=== PATIENT | female | born 1965 | race Caucasian/White ===

== ENCOUNTER 2017-02-22 09:53 | Emergency (ER) | payer OTHER, SELFPAY ==
[2017-02-22 09:53] VITALS: BP 131/83; PULSE 81; RESP 16; TEMP 36.7; O2SAT 99; BMI 22.8
[2017-02-22 22:05] LABS: UTC Influenza A Antigen Negative (Negative); UTC Influenza B Antigen Negative (Negative)
== END 2017-02-22 11:45 | disposition home or self-care (01) ==
PROVIDERS: Emergency Provider Physician Assistant; Family Provider Emergency Medicine; PCP Emergency Medicine
DX: R05 Cough (principal); Z79.899 Other long term (current) drug therapy
CPT/HCPCS: 87276; 87804; 99202

== ENCOUNTER → 2017-04-02 10:11 | Outpatient (REF) | payer OTHER, SELFPAY ==
[2017-04-02 12:29] LABS: Anion Gap 14.1 mEq/L (5-15); Blood Urea Nitrogen 23 mg/dL (7-18); Carbon Dioxide 27 mmol/L (21.0-32.0); Chloride 103 mmol/L (98-107); Chol/HDL Ratio 1.9 (1-3.5); Cholesterol 154 mg/dL (140-200); Creatinine,Serum 0.81 mg/dL (0.55-1.02); Estimated Glomerular Filt Rate 74 ml/min (>60); GFR (African American) 90 ML/MIN (>60); Glucose 98 mg/dL (74-106); HDL Cholesterol 81 mg/dL (29-89); LDL Cholesterol 61 mg/dL (0-130); Potassium 4.1 mmoL/L (3.5-5.1); Sodium 140 mmol/L (136-145); Triglycerides 61 mg/dL (30-200); VLDL Cholesterol 12 mg/dL (0-40)
== END ==
LOC: LAB 10:11
PROVIDERS: Visit Provider Emergency Medicine
DX: R53.83 Other fatigue (principal)
CPT/HCPCS: 80048; 80061

== ENCOUNTER → 2017-04-10 16:31 | Outpatient (CLI) | payer OTHER, SELFPAY ==
--- NOTE | 2017-04-10 | MM_ITS ---
MM Dig screening mamm BI w/CAD CAD Screening COMPARISON: Digital mammograms 12/11/2010 and 11/22/2015 INDICATION: There is no personal or family history of breast cancer TECHNIQUE: Standard CC and MLO images were obtained. R2 CAD reviewed. FINDINGS: Mild to moderate fibroglandular densities are seen in central portions of both breasts. There are couple benign-appearing calcifications left breast. There is stable nodularity right breast. There is no suspicious lesion and there are no suspicious microcalcifications. IMPRESSION: Moderate breast density with no suspicious lesion seen BI-RADS Category: 2 Benign Finding(s) RECOMMENDED FOLLOW-UP: 1YR - 1 YEAR FOLLOW-UP (A letter has been sent to the patient regarding results of the study.)
== END ==
PROVIDERS: Family Provider Emergency Medicine; PCP Emergency Medicine; Visit Provider Emergency Medicine
DX: Z12.31 Encounter for screening mammogram for malignant neoplasm of breast (principal)
CPT/HCPCS: 77067

== ENCOUNTER → 2018-05-04 17:44 | Outpatient (CLI) | payer BC, SELFPAY ==
[2018-05-04 18:21] LABS: Basophils % 0.8 % (0.1-2.0); Eosinophils # 0.2 K/mm3 (0.0-0.4); Eosinophils % 4.1 % (0.1-12.0); Hematocrit 41.2 % (37.0-47.0); Hemoglobin 13.2 g/dL (12.2-16.2); Lymphocytes # 2.4 K/mm3 (0.7-4.5); Lymphocytes % 54.3 % (10-50); Mean Corpuscular HGB Conc 32.1 g/dL (31.8-35.4); Mean Corpuscular Hemoglobin 29.7 pg (27.0-31.2); Mean Corpuscular Volume 92.3 fl (81-99); Mean Platelet Volume 9.3 fl (7.4-10.4); Monocytes # 0.4 K/mm3 (0.1-1.0); Monocytes % 8.5 % (1.7-9.3); Neutrophils # 1.5 K/mm3 (1.8-7.8); Neutrophils % 32.4 % (37.0-80.0); Platelet Count 189 K/mm3 (142-424); Red Blood Count 4.46 M/mm3 (4.20-5.40); Red Cell Distribution Width 13.4 % (11.5-17.5); White Blood Count 4.5 K/mm3 (4.8-10.8)
[2018-05-04 18:24] LABS: MANUAL DIFFERENTIAL MANUAL DIFFERENTIAL (MANUAL DIFF)
[2018-05-04 18:37] LABS: Alanine Aminotransferase 36 U/L (12-78); Albumin Level 4.3 gm/dL (3.4-5.0); Albumin/Globulin Ratio 1.2 (1.1-1.8); Alkaline Phosphatase 119 U/L (46-116); Anion Gap 14.1 mEq/L (5-15); Aspartate Amino Transferase 34 U/L (15-37); Bilirubin,Total 1.4 mg/dL (0.2-1.0); Blood Urea Nitrogen 13 mg/dL (7-18); Calcium 9.7 mg/dL (8.5-10.1); Carbon Dioxide 28 mmol/L (21.0-32.0); Chloride 104 mmol/L (98-107); Creatinine,Serum 0.84 mg/dL (0.55-1.02); Estimated Glomerular Filt Rate 71 ml/min (>60); GFR (African American) 86 ML/MIN (>60); Globulin 3.7 gm/dl (1.3-3.2); Glucose 94 mg/dL (74-106); Potassium 4.1 mmoL/L (3.5-5.1); Sodium 142 mmol/L (136-145)
[2018-05-04 20:03] LABS: Erythrocyte Sedimentation Rate 14 mm/hr (0-30)
[2018-05-04 20:30] LABS: Eosinophils % 7 % (0-3); Lymphocytes % 55 % (10-50); Monocytes % 8 % (2-9); Neutrophils % 27 % (42-76); Platelet Estimate Normal; Total Cells Counted 100
[2018-05-04 20:31] LABS: RBC Morphology Normal
[2018-05-06 08:57] LABS: Folate 16.2 ng/mL (>3.0); Vitamin B12 643 pg/mL (232-1245)
== END ==
PROVIDERS: Visit Provider Emergency Medicine
DX: I10 Essential (primary) hypertension (principal)
CPT/HCPCS: 80053; 82607; 82746; 85007; 85025; 85651

== ENCOUNTER → 2018-07-07 13:17 | Outpatient (CLI) | payer BC, SELFPAY ==
--- NOTE | 2018-07-07 13:18 | CT_ITS ---
CT soft tissue neck w con CLINICAL INDICATION: Left anterior neck mass/nodule with difficulty swallowing ITS.REASON: Neck mass? ORDERING PHYSICIAN: Magdy Higgins MD PATIENT AGE: 53 years COMPARISON: None TECHNIQUE:Axial images obtained following the intravenous administration of 75 mL's of Optiray 350 with sagittal and coronal reformats. All CT scans at the facility use one or more dose reduction, viz: automated exposure control, ma/kV adjustment per patient size (including targeted exams where dose is matched to indication, i.e. head), or iterative reconstruction technique. A BB was placed over the area of clinical concern FINDINGS: Unremarkable nasopharynx, oropharynx, hypopharynx, and glottic and subglottic region. No thyroid mass. Scattered small cervical lymph nodes. No enlarged lymph nodes. The parotid glands and submandibular glands have an unremarkable no masses or abnormal fluid collection in this region.. The adjacent muscle/sternohyoid muscle may be slightly thickened on this side compared to the other side but no definite mass is evident. There are some mild scarring in the lung apices. IMPRESSION: 1. Essentially unremarkable CT scan of the neck with contrast. No definite mass apparent. 2. There may be some mild thickening of the sternohyoid muscle on the left at the area of the placed BB but no definite mass apparent
== END ==
PROVIDERS: PCP Emergency Medicine; Visit Provider Emergency Medicine
DX: R09.89 Other specified symptoms and signs involving the circulatory and respiratory systems (principal)
CPT/HCPCS: 70491; Q9967

== ENCOUNTER → 2018-09-27 18:13 | Outpatient (CLI) | payer BC, SELFPAY ==
[2018-09-27 18:25] LABS: Eosinophils # 0.2 K/mm3 (0.0-0.4); Eosinophils % 3.6 % (0.1-12.0); Hematocrit 39.5 % (37.0-47.0); Hemoglobin 12.6 g/dL (12.2-16.2); Lymphocytes # 2.5 K/mm3 (0.7-4.5); Lymphocytes % 56.2 % (10-50); Mean Corpuscular HGB Conc 31.9 g/dL (31.8-35.4); Mean Corpuscular Hemoglobin 28.9 pg (27.0-31.2); Mean Corpuscular Volume 90.5 fl (81-99); Mean Platelet Volume 9.5 fl (7.4-10.4); Monocytes # 0.4 K/mm3 (0.1-1.0); Monocytes % 8.2 % (1.7-9.3); Neutrophils # 1.4 K/mm3 (1.8-7.8); Platelet Count 164 K/mm3 (142-424); Red Blood Count 4.37 M/mm3 (4.20-5.40); Red Cell Distribution Width 13.5 % (11.5-17.5); White Blood Count 4.4 K/mm3 (4.8-10.8)
[2018-09-27 18:48] LABS: MANUAL DIFFERENTIAL MANUAL DIFFERENTIAL (MANUAL DIFF)
[2018-09-27 18:49] LABS: Alanine Aminotransferase 33 U/L (12-78); Albumin Level 4.3 gm/dL (3.4-5.0); Albumin/Globulin Ratio 1.3 (1.1-1.8); Alkaline Phosphatase 109 U/L (46-116); Anion Gap 10.8 mEq/L (5-15); Aspartate Amino Transferase 25 U/L (15-37); Bilirubin,Total 1.4 mg/dL (0.2-1.0); Blood Urea Nitrogen 12 mg/dL (7-18); Calcium 9.1 mg/dL (8.5-10.1); Carbon Dioxide 29 mmol/L (21.0-32.0); Chloride 106 mmol/L (98-107); Chol/HDL Ratio 1.8 (1-3.5); Cholesterol 127 mg/dL (140-200); Creatinine,Serum 1.08 mg/dL (0.55-1.02); Estimated Glomerular Filt Rate 53 ml/min (>60); Free T4 (Free Thyroxine) 0.87 ng/dl (0.76-1.46); GFR (African American) 64 ML/MIN (>60); Globulin 3.3 gm/dl (1.3-3.2); Glucose 82 mg/dL (74-106); HDL Cholesterol 72 mg/dL (29-89); LDL Cholesterol 46 mg/dL (0-130); Potassium 3.8 mmoL/L (3.5-5.1); Sodium 142 mmol/L (136-145); Thyroid Stimulating Hormone 0.93 uIU/ml (0.358-3.740); Total Protein,Serum 7.6 gm/dL (6.4-8.2); Triglycerides 47 mg/dL (30-200); VLDL Cholesterol 9 mg/dL (0-40)
[2018-09-27 18:54] LABS: Erythrocyte Sedimentation Rate 15 mm/hr (0-30)
[2018-09-27 19:05] LABS: C-Reactive Protein < 0.2 mg/dL (0.0-0.9)
[2018-09-27 19:49] LABS: Eosinophils % 3 % (0-3); Lymphocytes % 56 % (10-50); Monocytes % 8 % (2-9); Neutrophils % 31 % (42-76); Platelet Estimate Normal; RBC Morphology Normal; Total Cells Counted 100
[2018-09-29 10:04] LABS: Vitamin D 25 Hydroxy 86.2 ng/mL (30.0-100.0)
== END ==
PROVIDERS: Visit Provider Emergency Medicine
DX: I10 Essential (primary) hypertension (principal); R53.83 Other fatigue; M06.9 Rheumatoid arthritis, unspecified; E78.5 Hyperlipidemia, unspecified; I25.10 Atherosclerotic heart disease of native coronary artery without angina pectoris; Z87.891 Personal history of nicotine dependence
CPT/HCPCS: 80053; 80061; 82652; 84439; 84443; 85007; 85025; 85651; 86140

== ENCOUNTER → 2018-10-21 15:21 | Outpatient (CLI) | payer BC, SELFPAY ==
--- NOTE | 2018-10-21 15:31 | XR_ITS ---
PROCEDURE: XR ANKLE WT BEARING LT MIN 3V CLINICAL INDICATION: pain COMPARISON: No exams were available for comparison FINDINGS: No fracture, dislocation, lytic change, or blastic change evident. No significant degenerative change IMPRESSION: Negative left ankle Dictated by: Brown Montana MD 10/21/2018 16:06 Electronically signed by Brown Montana MD in [facility] 10/21/2018 16:06
--- NOTE | 2018-10-21 15:31 | XR_ITS ---
PROCEDURE: XR FOOT WT BEARING LT 3V CLINICAL INDICATION: pain COMPARISON: No exams were available for comparison FINDINGS: No fracture or dislocation. No lytic or blastic change. There is normal mineralization. The joint spaces are well-preserved. No significant degenerative/arthritic changes. No erosive changes evident. Other findings:None. IMPRESSION: Negative left foot Dictated by: Brown Montana MD 10/21/2018 16:04 Electronically signed by Brown Montana MD in [facility] 10/21/2018 16:04
--- NOTE | 2018-10-21 15:31 | XR_ITS ---
PROCEDURE: XR ANKLE WT BEARING RT MIN 3V CLINICAL INDICATION: pain COMPARISON: No exams were available for comparison FINDINGS: No fracture, dislocation, lytic change, or blastic change evident. No significant degenerative change IMPRESSION: Negative right ankle Dictated by: Brown Montana MD 10/21/2018 16:03 Electronically signed by Brown Montana MD in [facility] 10/21/2018 16:03
--- NOTE | 2018-10-21 15:31 | XR_ITS ---
PROCEDURE: XR FOOT WT BEARING RT 3V CLINICAL INDICATION: pain COMPARISON: No exams were available for comparison FINDINGS: No fracture or dislocation. No lytic or blastic change. There is normal mineralization. The joint spaces are well-preserved. No significant degenerative/arthritic changes. No erosive changes evident. Other findings:None. IMPRESSION: Negative right foot Dictated by: Brown Montana MD 10/21/2018 16:26 Electronically signed by Brown Montana MD in [facility] 10/21/2018 16:26
== END ==
PROVIDERS: PCP Emergency Medicine; Visit Provider Podiatrist
DX: M79.672 Pain in left foot (principal); M79.671 Pain in right foot
CPT/HCPCS: 73610; 73630

== ENCOUNTER → 2019-07-28 12:49 | Outpatient (CLI) | payer BC, SELFPAY ==
[2019-07-28 13:04] LABS: Chloride 108 mmol/L (98-107); Potassium 4.2 mmoL/L (3.5-5.1); Sodium 141 mmol/L (136-145)
[2019-07-28 13:07] LABS: Anion Gap 12.2 mEq/L (5-15); Blood Urea Nitrogen 16 mg/dl (7-17); Carbon Dioxide 25 mmol/L (22.0-30.0); Estimated Glomerular Filt Rate 75 ml/min (>60); GFR (African American) 90 ML/MIN (>60); Iron 95 ug/dL (37-170)
[2019-07-28 13:08] LABS: Calcium 9.5 mg/dl (8.4-10.2); Glucose 96 mg/dl (74-100)
[2019-07-28 13:23] LABS: Total Iron Binding Capacity 322 ug/dL (265-497)
== END ==
PROVIDERS: Visit Provider Physician Assistant
DX: K12.0 Recurrent oral aphthae (principal); K13.0 Diseases of lips
CPT/HCPCS: 80048; 83540; 83550

== ENCOUNTER → 2019-07-29 16:54 | Outpatient (CLI) | payer BC, SELFPAY ==
[2019-08-03 11:10] LABS: Vitamin B1 170.1 nmol/L (66.5-200.0); Zinc 101 ug/dL (56-134)
[2019-08-05 09:26] LABS: Vitamin B6 42.8 ug/L (2.0-32.8)
== END ==
PROVIDERS: Visit Provider Physician Assistant
DX: K12.0 Recurrent oral aphthae (principal); K13.0 Diseases of lips
CPT/HCPCS: 36415; 84207; 84425; 84630

== ENCOUNTER → 2019-09-13 16:18 | Outpatient (POV) | payer BC, SELFPAY | PROVIDERS: PCP Emergency Medicine; Visit Provider Dermatology | DX: Z00.00 Encounter for general adult medical examination without abnormal findings (principal) ==

== ENCOUNTER → 2019-12-29 16:49 | Outpatient (CLI) | payer BC, SELFPAY ==
[2019-12-29 17:35] LABS: Adenovirus,PCR Not Detected (NotDetected); Bordetella Pertussis Not Detected (NotDetected); Chlamydophila Pneumoniae, PCR Not Detected (NotDetected); Coronavirus 19, PCR Not Detected (NotDetected); Coronavirus 229E Not Detected (NotDetected); Coronavirus NL63 Not Detected (NotDetected); Coronavirus OC43 Not Detected (NotDetected); Coronovirus HKU1,PCR Not Detected (NotDetected); Human Metapneumovirus Not Detected (NotDetected); Influenza A, PCR Not Detected (NotDetected); Influenza AH1, 2009 Not Detected (NotDetected); Influenza AH1, PCR Not Detected (NotDetected); Influenza AH3,PCR Not Detected (NotDetected); Influenza B, PCR Not Detected (NotDetected); Mycoplasma Pneumoniae, PCR Not Detected (NotDetected); Parainfluenza 1, PCR Not Detected (NotDetected); Parainfluenza 2, PCR Not Detected (NotDetected); Parainfluenza 3, PCR Not Detected (NotDetected); Parainfluenza 4, PCR Not Detected (NotDetected); Respiratory Syncytial Virus Not Detected (NotDetected); Rhinovirus/Enterovirus Not Detected (NotDetected)
== END ==
PROVIDERS: PCP Emergency Medicine; Visit Provider Emergency Medicine
DX: Z03.818 Encounter for observation for suspected exposure to other biological agents ruled out (principal)
CPT/HCPCS: 87581; 87633; 87798; U0003

== ENCOUNTER → 2020-04-26 07:52 | Outpatient (CLI) | payer BC, SELFPAY ==
--- NOTE | 2020-04-26 07:53 | MM_ITS ---
PROCEDURE: MM DIG SCREENING MAMM BI W/CAD Digital Breast Tomosynthesis Included CLINICAL INDICATION: screening xmg There is no personal or family history of breast cancer. COMPARISON: MG [facility] DIGITAL MAMM-SCREEN BILATERAL from 12/11/2010 MG [facility] DIG MAMM-SCREEN [facility] from 11/22/2015 [facility] MM Dig screening mamm BI w/CAD from 04/10/2017 TECHNIQUE: Standard CC and MLO images and 3D Tomosynthesis was obtained. R2 CAD reviewed. FINDINGS: Scattered fibroglandular densities are seen in both breasts and the findings are bilateral and symmetrical. Couple of benign-appearing microcalcifications in each breast. There is a stable tiny benign-appearing nodular density central portion right breast there is no suspicious lesion and no suspicious microcalcifications. IMPRESSION: Moderate breast density with no suspicious lesions seen BI-RAD Category: 2 Benign Finding(s) FOLLOW-UP: 1YR 1 Year Follow-up (A letter has been sent to the patient regarding results of the study.) Dictated by: Dr. Mendoza Winter MD 05/05/2020 09:12 Dr. Mendoza Winter MD in [place] 05/05/2020 09:12
== END ==
PROVIDERS: PCP Emergency Medicine; Visit Provider Nurse Practitioner Obstetrics & Gynecology
DX: Z12.31 Encounter for screening mammogram for malignant neoplasm of breast (principal)
CPT/HCPCS: 77063; 77067

== ENCOUNTER → 2020-09-25 17:38 | Outpatient (CLI) | payer BC, SELFPAY ==
[2020-09-25 18:53] LABS: Alanine Aminotransferase 45 U/L (12-78); Albumin Level 4.6 g/dl (3.5-5.0); Albumin/Globulin Ratio 1.4 (1.1-1.8); Alkaline Phosphatase 88 U/L (38-126); Anion Gap 14.2 mEq/L (5-15); Aspartate Amino Transferase 42 U/L (14-36); Bilirubin,Total 1.2 mg/dl (0.2-1.3); Blood Urea Nitrogen 14 mg/dl (7-17); Calcium 9.3 mg/dl (8.4-10.2); Carbon Dioxide 27 mmol/L (22.0-30.0); Chloride 105 mmol/L (98-107); Estimated Glomerular Filt Rate 65 ml/min (>60); GFR (African American) 79 ML/MIN (>60); Globulin 3.4 g/dL (1.3-3.2); Glucose 100 mg/dl (74-100); Potassium 4.2 mmoL/L (3.5-5.1); Sodium 142 mmol/L (136-145)
[2020-09-25 18:58] LABS: Basophils # 0.1 K/mm3 (0-0.2); Basophils % 0.9 % (0.1-2.0); Eosinophils # 0.2 K/mm3 (0.0-0.4); Eosinophils % 3.8 % (0.1-12.0); Hematocrit 45.2 % (37.0-47.0); Hemoglobin 15.3 g/dL (12.2-16.2); Lymphocytes # 2.1 K/mm3 (0.7-4.5); Lymphocytes % 35.3 % (10-50); Mean Corpuscular HGB Conc 33.9 g/dL (31.8-35.4); Mean Corpuscular Volume 97.4 fl (81-99); Mean Platelet Volume 9.3 fl (7.4-10.4); Monocytes # 0.3 K/mm3 (0.1-1.0); Monocytes % 5.5 % (1.7-9.3); Neutrophils # 3.3 K/mm3 (1.8-7.8); Neutrophils % 54.5 % (37.0-80.0); Platelet Count 140 K/mm3 (142-424); Red Blood Count 4.64 M/mm3 (4.20-5.40); Red Cell Distribution Width 14.4 % (11.5-17.5)
== END ==
PROVIDERS: Visit Provider Emergency Medicine
DX: N39.0 Urinary tract infection, site not specified (principal)
CPT/HCPCS: 80053; 85025

== ENCOUNTER → 2020-10-10 07:49 | Outpatient (CLI) | payer BC, SELFPAY ==
--- NOTE | 2020-10-10 07:49 | CT_ITS ---
PROCEDURE: CT ABDOMEN PELVIS WO CON CLINICAL INDICATION: colic Right-sided abdominal pain COMPARISON: No exams were available for comparison TECHNIQUE: Axial images obtained with sagittal and coronal reformats. All CT scans at the facility use one or more dose reduction, viz: automated exposure control, ma/kV adjustment per patient size (including targeted exams where dose is matched to indication, i.e. head), or iterative reconstruction technique. FINDINGS: LOWER THORAX: No acute finding ABDOMEN & PELVIS: The left lobe of the liver is enlarged with a maximum transverse dimension of the liver at 23 cm. No focal liver lesion apparent. Solid organ evaluation limited without IV contrast. The spleen and adrenal glands have an unremarkable appearance. There is fullness of the pancreatic head. No peripancreatic fluid collections or inflammation apparent. This a no renal or ureteral calculi. There is non rotation of the bowel. The colon is mostly on the left side and small bowel on the right side. The the appendix is not clearly delineated. No evidence of appendicitis. No intestinal obstruction or free air. No pelvic mass or abnormal fluid collection. No evidence of diverticulitis. Small sclerotic focus is present along the posterior aspect of the left acetabulum and could be due to a bone island. IMPRESSION: 1. No acute finding. 2. Non rotation of the bowel with the colon on the left and the small bowel on the right. 3. Fullness in the head of the pancreas. Cannot exclude pancreatic mass. Suggest dedicated CT of the pancreas without and with contrast for further evaluation. 4. Enlarged left lobe of the liver Dictated by: Brown Montana MD 10/11/2020 05:18 Brown Montana MD in [place] 10/11/2020 05:18
== END ==
PROVIDERS: PCP Emergency Medicine; Visit Provider Emergency Medicine
DX: R10.84 Generalized abdominal pain (principal)
CPT/HCPCS: 74176

== ENCOUNTER → 2020-11-01 12:59 | Outpatient (CLI) | payer BC, SELFPAY ==
[2020-11-01 13:29] LABS: Chloride 104 mmol/L (98-107); Sodium 141 mmol/L (136-145)
[2020-11-01 13:30] LABS: Potassium 4.2 mmoL/L (3.5-5.1)
[2020-11-01 13:32] LABS: Blood Urea Nitrogen 10 mg/dl (7-17)
[2020-11-01 13:33] LABS: Anion Gap 14.2 mEq/L (5-15); Calcium 9.7 mg/dl (8.4-10.2); Carbon Dioxide 27 mmol/L (22.0-30.0); Estimated Glomerular Filt Rate 74 ml/min (>60); GFR (African American) 90 ML/MIN (>60); Glucose 120 mg/dl (74-100)
== END ==
PROVIDERS: Visit Provider Emergency Medicine
DX: Z01.812 Encounter for preprocedural laboratory examination (principal)
CPT/HCPCS: 36415; 80048

== ENCOUNTER → 2020-11-05 08:54 | Outpatient (CLI) | payer BC, SELFPAY ==
--- NOTE | 2020-11-05 08:54 | CT_ITS ---
PROCEDURE INFORMATION: Exam: CT Abdomen Without And With Contrast Exam date and time: 11/05/2020 8:54 AM Age: 55 years old Clinical indication: Abnormal findings; Abnormal radiologic finding of the abdomen; Patient HX: Previous CT results: 1. No acute finding. 2. Non rotation of the bowel with the colon on the left and the small bowel on the right. 3. Fullness in the head of the pancreas. Cannot exclude pancreatic mass. Suggest dedicated CT of the pancreas without and with contrast for further evaluation. 4. Enlarged left lobe of the liver; Additional info: Attn: Pancreas TECHNIQUE: Imaging protocol: Computed tomography images of the abdomen without and with intravenous contrast. Radiation optimization: All CT scans at this facility use at least one of these dose optimization techniques: automated exposure control; mA and/or kV adjustment per patient size (includes targeted exams where dose is matched to clinical indication); or iterative reconstruction. Contrast material: ISOVUE; Contrast volume: 75 ml; Contrast route: IV; COMPARISON: CT ABDOMEN PELVIS WO CON 10/10/2020 7:50 AM FINDINGS: Liver: There are scattered benign granulomatous calcifications identified within the liver. No mass. Prominent left hepatic lobe again identified. No evidence of intrahepatic biliary dilatation. Gallbladder and bile ducts: Cholecystectomy has been performed. There is no evidence of extrahepatic biliary dilatation. Pancreas: Normal. Specifically no evidence of mass within the pancreatic head. No ductal dilation. Spleen: Multiple granulomatous calcifications identified within the spleen. No evidence of mass. No splenomegaly. Adrenals: Normal. No mass. Kidneys and ureters: Normal. No hydronephrosis. Two benign cysts are again identified within the interpolar region of the left kidney. These are stable and benign. Stomach and bowel: Again, there is non rotation of the colon. This is unchanged. The stomach is unremarkable. No obstruction. No mucosal thickening. Intraperitoneal space: Unremarkable. No free air. No significant fluid collection. Lymph nodes: Unremarkable. No enlarged lymph nodes. Vasculature: Atheromatous arterial calcifications again identified. No abdominal aortic aneurysm. Bones/joints: Unremarkable. No acute fracture. No dislocation. Soft tissues: Unremarkable. IMPRESSION: 1. There is no evidence of pancreatic mass. 2. Cholecystectomy has been performed. 3. Evidence of old healed granulomatous disease within the liver and spleen. 4. Prominent left hepatic lobe again identified. 5. Two benign cysts identified within the interpolar region of the left kidney, stable. 6. Non rotation of the colon again identified.
== END ==
PROVIDERS: PCP Emergency Medicine; Visit Provider Emergency Medicine
DX: K86.89 Other specified diseases of pancreas (principal)
CPT/HCPCS: 74170; Q9967

== ENCOUNTER → 2020-11-08 09:14 | Outpatient (CLI) | payer BC, SELFPAY ==
[2020-11-08 11:36] LABS: Hemoglobin A1C 5.7 % (4.0-6.0)
== END ==
PROVIDERS: Visit Provider Nurse Practitioner Family
DX: R73.09 Other abnormal glucose (principal)
CPT/HCPCS: 36415; 83036

== ENCOUNTER → 2020-11-14 08:45 | Outpatient (CLI) | payer BC, SELFPAY ==
[2020-11-15 10:19] LABS: Chol/HDL Ratio 2.5 (1-3.5); Cholesterol 131 mg/dl (140-200); HDL Cholesterol 53 mg/dl (40-60); Triglycerides 129 mg/dl (30-150); VLDL Cholesterol 26 mg/dL (0-40)
[2020-11-15 10:31] LABS: Direct LDL Cholesterol 56.35 mg/dL (100-129)
== END ==
PROVIDERS: Visit Provider Emergency Medicine
DX: E78.5 Hyperlipidemia, unspecified (principal)
CPT/HCPCS: 80061

== ENCOUNTER → 2021-01-24 13:39 | Outpatient (CLI) | payer BC, SELFPAY ==
[2021-01-24 13:40] LABS: Adenovirus,PCR Not Detected (NotDetected); Bordetella Pertussis Not Detected (NotDetected); Chlamydophila Pneumoniae, PCR Not Detected (NotDetected); Coronavirus 229E Not Detected (NotDetected); Coronavirus NL63 Not Detected (NotDetected); Coronavirus OC43 Not Detected (NotDetected); Coronovirus HKU1,PCR Not Detected (NotDetected); Human Metapneumovirus Not Detected (NotDetected); Influenza A, PCR Not Detected (NotDetected); Influenza AH1, 2009 Not Detected (NotDetected); Influenza AH1, PCR Not Detected (NotDetected); Influenza AH3,PCR Not Detected (NotDetected); Influenza B, PCR Not Detected (NotDetected); Mycoplasma Pneumoniae, PCR Not Detected (NotDetected); Parainfluenza 1, PCR Not Detected (NotDetected); Parainfluenza 2, PCR Not Detected (NotDetected); Parainfluenza 3, PCR Not Detected (NotDetected); Parainfluenza 4, PCR Not Detected (NotDetected); Respiratory Syncytial Virus Not Detected (NotDetected); Rhinovirus/Enterovirus Not Detected (NotDetected)
[2021-01-24 17:31] LABS: Coronavirus 19, PCR Detected (NotDetected)
== END ==
PROVIDERS: Visit Provider Nurse Practitioner Family
DX: U07.1 COVID-19 (principal); R69 Illness, unspecified
CPT/HCPCS: 87581; 87632; 87798; C9803; U0003; U0005

== ENCOUNTER → 2021-01-26 10:00 | Outpatient (CLI) | payer BC, SELFPAY ==
[2021-01-26] VITALS (8 sets, daily range): BP systolic 149–186; BP diastolic 83–94; PULSE 74–104; RESP 18; TEMP 36.8; O2SAT 95–98
[2021-01-27 10:01] VITALS: BP 211/97; PULSE 96; O2SAT 96
== END ==
PROVIDERS: PCP Emergency Medicine; Visit Provider Nurse Practitioner Family
DX: U07.1 COVID-19 (principal); Z23 Encounter for immunization
CPT/HCPCS: 96365

== ENCOUNTER → 2021-05-16 10:52 | Outpatient (CLI) | payer BC, SELFPAY ==
--- NOTE | 2021-05-16 10:52 | MM_ITS ---
PROCEDURE INFORMATION: Exam: MG Bilateral Screening 3D Mammography Exam date and time: 05/16/2021 10:47 AM Age: 56 years old Clinical indication: The patient presents for breast screening exam TECHNIQUE: Imaging protocol: Bilateral Screening tomosynthesis and 2D mammography including computer-aided detection (CAD) when performed. COMPARISON: 1. MG MM DIG SCREENING MAMM BI W/CAD 04/26/2020 8:05 AM 2. [facility] MM Dig screening mamm BI w/CAD 04/10/2017 4:44 PM FINDINGS: MAMMOGRAPHY: Breast composition: The breast tissue is composed of scattered areas of fibroglandular density. Mass: None. Architectural distortion: None. Calcifications: No suspicious calcifications. Asymmetric density: None. Skin thickening: None. Axillary adenopathy: None. IMPRESSION: No mammographic evidence of malignancy. Annual screening is recommended unless otherwise clinically indicated. ASSESSMENT: BI-RADS Category 1: Negative
== END ==
PROVIDERS: PCP Emergency Medicine; Visit Provider Nurse Practitioner Obstetrics & Gynecology
DX: Z12.31 Encounter for screening mammogram for malignant neoplasm of breast (principal)
CPT/HCPCS: 77063; 77067

== ENCOUNTER 2021-10-24 16:51 | Emergency (ER) | payer BC, SELFPAY ==
[2021-10-24 17:00] VITALS: BP 188/103; PULSE 84; RESP 20; TEMP 36.7; O2SAT 98; BMI 25.2
--- NOTE | 2021-10-24 17:08 | XR_ITS ---
PROCEDURE INFORMATION: Exam: XR Right Wrist Exam date and time: 10/24/21 05:03 PM Age: 56 years old Clinical indication: Pain; Wrist; Right TECHNIQUE: Imaging protocol: Radiologic exam of the Right wrist. Views: 3 or more views. COMPARISON: No relevant prior studies available. FINDINGS: Bones/joints: Normal. Soft tissues: Normal. IMPRESSION: No acute findings.
--- NOTE | 2021-10-24 17:25 | EXP.UTC ---
Discharge Plan Disposition Patient Disposition: Home, Self-Care Condition: Good Prescriptions Prescriptions: No Action metoprolol succinate [Toprol XL] 25 mg tablet extended release 24 hr 25 mg PO BID atorvastatin [Lipitor] 80 mg tablet 80 mg PO ONCE amlodipine 2.5 mg tablet 2.5 mg PO Label Comments: TAKE 1 TABLET BY MOUTH EVERY DAY aspirin [Cody Chewable Aspirin] 81 mg tablet,chewable 81 mg PO DAILY cetirizine [Allergy Relief (cetirizine)] 10 mg tablet 10 mg PO DAILY PRN cholecalciferol (vitamin D3) 50 mcg (2,000 unit) capsule 50 mcg PO DAILY Enbrel 25 mg/0.5 mL (0.5) syringe 25 mg SQ WEEKLY phentermine [Adipex-P] 37.5 mg tablet 37.5 mg PO DAILY Qty: 30 0RF Rx Instructions: must administer 30 minutes before or 1-2 hours after breakfast Paxlovid (EUA) 150-100 mg tablet See Rx Instructions PO PER PKG DIR Qty: 30 0RF Rx Instructions: PO PER PKG DIR leflunomide 20 tablet 20 mg PO DAILY Referrals Follow up/Referrals: Magdy Higgins MD [Primary Care Provider] - See instructions Activity Restrictions/Add. Instructions Additional Instructions/Restrictions: *RICE, Rest the extremity, Ice 15-20 minutes 3-4 times daily, Compress- wear the lenin wrap as discussed as much as possible to help reduce swelling and pain, Elevate the extremity when at rest *Lenin wrap is for support and help control swelling, use it except in the shower. Be sure that is not to tight but not to loose either *Elevate when resting? *Ibuprofen 600-800mg every 6-8 hours as needed for pain an inflammation. If need something more can take Tylenol in between doses of Ibuprofen to help Immediately follow up with your family doctor for new or worsening of symptoms, or no noticeable improvement over the next 3-5 days Clinical Impressions Clinical Impression: Pain in wrist Instructions Patient Instructions: How To Perform RICE (Rest, Ice, Compress, Elevate) Discharge ED Provider: Shellie [place] [facility] [place] Stated complaint: pain in R ARM no accident Mode of Arrival: Ambulatory Source of Information: Patient Limitations: No Limitations Time Seen by Provider: 10/24/21 17:25 Description of Symptoms (Recalled from Triage Doc. by RN): PATIENT C/O PAIN TO RIGHT WRIST. SHE STATES THE PAIN STARTED ABOUT 1.5 MONTHS AGO WHEN SHE WAS HELPING HER CLEAN OUT THE FENCE ROW HEENT Symptoms (Recalled from RN notes): No Resp Symptoms (Recalled from RN notes): No Skin Symptoms (Recalled from RN notes): No MS Symptoms (Recalled from RN notes): Yes Functional Status (Recalled from RN notes): WNL History of Present Illness Provider Complaint: Patient states that about a month ago she was helping her clear out the fence row with a set of hedgers and she has been having pain in the side of her wrist below her thumb ever since State that hurts when she moves it or touches it Denies known injury Related Data Home Medications Medication Instructions Recorded Confirmed atorvastatin 80 mg tablet (Lipitor) 80 mg PO ONCE Cholesterol 04/01/17 01/24/21 metoprolol succinate 25 mg 25 mg PO BID Heart disease 04/01/17 01/24/21 tablet,extended release 24 hr (Toprol XL) leflunomide 20 mg tablet 20 mg PO DAILY Rheumatoid arthritis 11/23/18 01/24/21 amlodipine 2.5 mg tablet 2.5 mg PO 04/26/20 01/24/21 aspirin 81 mg chewable tablet 81 mg PO DAILY 04/26/20 01/24/21 (Cody Chewable Low Dose Aspirin) cetirizine 10 mg tablet (Allergy 10 mg PO DAILY PRN 04/26/20 01/24/21 Relief (cetirizine)) cholecalciferol (vitamin D3) 50 50 mcg PO DAILY 04/26/20 01/24/21 mcg (2,000 unit) capsule etanercept 25 mg/0.5 mL (0.5 mL) 25 mg SQ WEEKLY 05/23/20 01/24/21 subcutaneous syringe (Enbrel) Previous Rx's Medication Instructions Recorded phentermine 37.5 mg tablet 37.5 mg PO DAILY #30 tabs 12/12/20 (Adipex-P) nirmatrelvir 150 mg-ritonavir 100 See Rx Instructions PO PER PKG DIR
[2021-10-24 17:48] VITALS: BP 188/103; PULSE 84; RESP 20; TEMP 36.7; O2SAT 98
== END 2021-10-24 18:13 | disposition home or self-care (01) ==
PROVIDERS: Emergency Provider Nurse Practitioner; PCP Emergency Medicine
DX: M25.531 Pain in right wrist (principal)
CPT/HCPCS: 73110; 99212; G0463

== ENCOUNTER → 2022-08-07 15:28 | Outpatient (CLI) | payer BC, SELFPAY ==
--- NOTE | 2022-08-07 15:28 | MM_ITS ---
PROCEDURE INFORMATION: Exam: MG Bilateral Screening 3D Mammography Exam date and time: 08/07/2022 3:23 PM Age: 57 years old Clinical indication: Screening. No family history of breast cancer. TECHNIQUE: Imaging protocol: Bilateral Screening tomosynthesis and 2D mammography including computer-aided detection (CAD) when performed. COMPARISON: 1. MG MM DIG SCREENING MAMM BI W/CAD 05/16/2021 10:47 AM 2. MG MM DIG SCREENING MAMM BI W/CAD 04/26/2020 8:05 AM 3. [facility] MM Dig screening mamm BI w/CAD 04/10/2017 4:44 PM 4. MG [facility] DIG MAMM-SCREEN [facility] 11/22/2015 3:28 PM FINDINGS: MAMMOGRAPHY: Breast composition: There are scattered areas of fibroglandular density. Mass: No suspicious mass. Architectural distortion: None. Calcifications: No suspicious calcifications. Asymmetric density: None. Skin thickening: None. Axillary adenopathy: None. IMPRESSION: No mammographic evidence of malignancy. Annual screening is recommended unless otherwise clinically indicated. ASSESSMENT: BI-RADS Category 1: Negative
== END ==
PROVIDERS: PCP Emergency Medicine; Visit Provider Nurse Practitioner Obstetrics & Gynecology
DX: Z12.31 Encounter for screening mammogram for malignant neoplasm of breast (principal)
CPT/HCPCS: 77063; 77067

== ENCOUNTER → 2022-09-09 16:42 | Outpatient (CLI) | payer BC, SELFPAY ==
[2022-09-09 16:50] LABS: Microscopic, Urine URINE MICROSCOPIC (MICROSCOPIC)
--- NOTE | 2022-09-09 16:57 | XR_ITS ---
PROCEDURE INFORMATION: Exam: XR Chest Exam date and time: 09/09/2022 5:01 PM Age: 57 years old Clinical indication: Cough TECHNIQUE: Imaging protocol: Radiologic exam of the chest. Views: 2 views. COMPARISON: CT ABDOMEN WO/W CON 11/05/2020 10:33 AM FINDINGS: Lungs: Unremarkable. No consolidation. Pleural spaces: Unremarkable. No pleural effusion. No pneumothorax. Heart/Mediastinum: Unremarkable. No cardiomegaly. Bones/joints: Median sternotomy. IMPRESSION: No acute findings.
[2022-09-09 17:36] LABS: Appearance,Urine CLEAR (Clear); Bilirubin,Urine Negative (Negative); Blood, Urine TRACE-I (Negative); Color,Urine YELLOW (Yellow); Glucose,Urine (UA) Negative (Negative); Ketones,Urine Negative (Negative); Leukocyte Esterase,Urine Negative (Negative); Nitrate,Urine Negative (Negative); Protein,Urine Negative (Negative); Specific Gravity, Urine <= 1.005 (1.005-1.030); Urobilinogen,Urine 0.2 EU/dl (0.2)
[2022-09-09 18:00] LABS: Squamous Epithelial Cell,Urine Occasional #/hpf (0-5)
== END ==
PROVIDERS: PCP Emergency Medicine; Visit Provider Student in an Organized Health Care Education/Training Program
DX: R50.9 Fever, unspecified (principal); R05.9 Cough, unspecified
CPT/HCPCS: 71046; 81001

== ENCOUNTER 2023-01-24 14:13 | Emergency (ER) | payer BC, SELFPAY ==
--- NOTE | 2023-01-24 14:18 | XR_ITS ---
PROCEDURE INFORMATION: Exam: XR Right Forearm Exam date and time: 01/24/2023 2:18 PM Age: 58 years old Clinical indication: Injury or trauma; Fall; Blunt trauma (contusions or hematomas); Arm, lower; Right TECHNIQUE: Imaging protocol: Radiologic exam of the right forearm. Views: 2 views. COMPARISON: CR XR WRIST RT MIN 3V 01/24/2023 2:16 PM FINDINGS: Bones/joints: There is no evidence of acute fracture in any of the visualized osseous structures.. There is no evidence of malalignment or dislocation of any visualized joint. Degenerative changes in the radiocarpal joint Soft tissues: Normal. IMPRESSION: 1. There is no evidence of acute fracture in any of the visualized osseous structures.. 2. There is no evidence of malalignment or dislocation of any visualized joint.
--- NOTE | 2023-01-24 14:18 | XR_ITS ---
PROCEDURE INFORMATION: Exam: XR Right Elbow Exam date and time: 01/24/2023 2:19 PM Age: 58 years old Clinical indication: Injury or trauma; Fall; Blunt trauma (contusions or hematomas); Elbow; Right TECHNIQUE: Imaging protocol: Radiologic exam of the right elbow. Views: 3 or more views. COMPARISON: CR XR FOREARM RT 2V 01/24/2023 2:18 PM FINDINGS: Bones/joints: There is no evidence of acute fracture in any of the visualized osseous structures.. There is no evidence of malalignment or dislocation of any visualized joint. Soft tissues: Normal. IMPRESSION: 1. There is no evidence of acute fracture in any of the visualized osseous structures.. 2. There is no evidence of malalignment or dislocation of any visualized joint.
--- NOTE | 2023-01-24 14:18 | XR_ITS ---
PROCEDURE INFORMATION: Exam: XR Right Wrist Exam date and time: 01/24/2023 2:16 PM Age: 58 years old Clinical indication: Injury or trauma; Fall; Blunt trauma (contusions or hematomas); Wrist; Right TECHNIQUE: Imaging protocol: Radiologic exam of the right wrist. Views: 3 or more views. COMPARISON: CR XR WRIST RT MIN 3V 10/24/2021 5:03 PM FINDINGS: Bones/joints: There is no evidence of acute fracture in any of the visualized osseous structures.. There is no evidence of malalignment or dislocation of any visualized joint. Soft tissues: Normal. IMPRESSION: 1. There is no evidence of acute fracture in any of the visualized osseous structures.. 2. There is no evidence of malalignment or dislocation of any visualized joint.
[2023-01-24 14:45] VITALS: BP 145/69; PULSE 85; RESP 20; TEMP 36.8; O2SAT 98; BMI 27.2
--- NOTE | 2023-01-24 15:13 | EXP.UTC ---
Discharge Plan Disposition Patient Disposition: Home, Self-Care Prescriptions Prescriptions: New ibuprofen 800 mg tablet 800 mg PO TID PRN (Reason: pain) Qty: 30 0RF No Action metoprolol succinate [Toprol XL] 25 mg tablet extended release 24 hr 25 mg PO BID atorvastatin [Lipitor] 80 mg tablet 80 mg PO ONCE amlodipine 2.5 mg tablet 2.5 mg PO DAILY Patient Comments: TAKE 1 TABLET BY MOUTH EVERY DAY Enbrel 25 mg/0.5 mL (0.5) syringe 25 mg SQ WEEKLY leflunomide 20 tablet 20 mg PO DAILY valsartan 160 mg tablet 160 mg PO DAILY Patient Comments: TAKE 1 TABLET BY MOUTH 1 TIME EACH DAY. Referrals Follow up/Referrals: Salo Montes DO [Primary Care Provider] - See instructions Activity Restrictions/Add. Instructions Additional Instructions/Restrictions: If not better or if worse then follow up with PCP in a week. Clinical Impressions Clinical Impression: Right arm pain Instructions Patient Instructions: How To Perform RICE (Rest, Ice, Compress, Elevate) Discharge ED Provider: Michelle Londono [facility] HPI General Stated complaint: AO fall 01/24, right arm pain Mode of Arrival: Ambulatory Source of Information: Patient Limitations: No Limitations Time Seen by Provider: 01/24/23 15:12 Description of Symptoms (Recalled from Triage Doc. by RN): PATIENT C/O PAIN TO RIGHT ARM AFTER FALLING ON IT THIS MORNING. SHE STATES PAIN IS FROM HER ELBOW TO WRIST HEENT Symptoms (Recalled from RN notes): No Resp Symptoms (Recalled from RN notes): No Skin Symptoms (Recalled from RN notes): No MS Symptoms (Recalled from RN notes): Yes Functional Status (Recalled from RN notes): WNL History of Present Illness Provider Complaint: Pt reports falling this morning over her cat and she fell on her right arm and now has pain from her elbow to her wrist. She states that she has not been able to completely straighten out her right arm due to pain in her elbow. She has taken Ibuprofen for her pain. Related Data Home Medications Medication Instructions Recorded Confirmed atorvastatin 80 mg tablet (Lipitor) 80 mg PO ONCE Cholesterol 04/01/17 01/24/23 metoprolol succinate 25 mg 25 mg PO BID Heart disease 04/01/17 01/24/23 tablet,extended release 24 hr (Toprol XL) leflunomide 20 mg tablet 20 mg PO DAILY Rheumatoid arthritis 11/23/18 01/24/23 amlodipine 2.5 mg tablet 2.5 mg PO DAILY 04/26/20 01/24/23 etanercept 25 mg/0.5 mL (0.5 mL) 25 mg SQ WEEKLY 05/23/20 01/24/23 subcutaneous syringe (Enbrel) valsartan 160 mg tablet 160 mg PO DAILY 01/24/23 01/24/23 Previous Rx's Medication Instructions Recorded ibuprofen 800 mg tablet 800 mg PO TID PRN pain #30 tabs 01/24/23 Allergies Allergy/AdvReac Type Severity Reaction Status Date / Time topiramate [From Topamax] Allergy Unknown VISION LOSS Verified 09/09/22 16:09 Worker's Comp Is this a Worker's Comp case?: No [facility] Disclaimer: The information contained in this section may have been updated after the patient was seen, as this information can be updated by other users. Medical History (Updated 01/24/23 @ 15:29 by Michelle Londono APRN) History of heart attack Hyperlipidemia Hypertension Negative colorectal cancer screening using DNA-based stool test Surgical History H/O right heart catheterization History of cholecystectomy History of open heart surgery History of tubal ligation Social History Smoking Status: Former smoker second hand exposure: No alcohol intake: never substance use type: denies use current occupational status: unemployed Travel in the last 8 weeks: None household members: spouse housing: house caffeine: Yes ROS Obtained: Yes All systems reviewed & no additional complaints except as documented Constitutional Constitutional: Reports system reviewed and no ad
[2023-01-24 15:34] VITALS: BP 145/69; PULSE 85; RESP 20; TEMP 36.8; O2SAT 98
== END 2023-01-24 15:38 | disposition home or self-care (01) ==
PROVIDERS: Emergency Provider Nurse Practitioner Family; PCP Internal Medicine
DX: M79.631 Pain in right forearm (principal); I10 Essential (primary) hypertension; E78.5 Hyperlipidemia, unspecified; Z87.891 Personal history of nicotine dependence; W01.10XA Fall on same level from slipping, tripping and stumbling with subsequent striking against unspecified object, initial encounter
CPT/HCPCS: 73080; 73090; 73110; 99212; 99214; G0463

== ENCOUNTER 2023-04-09 18:34 | Outpatient (CLI) | payer BC, SELFPAY ==
[2023-04-09 18:15] LABS: Basophils % 0.5 % (0.1-2.0); Eosinophils # 0.3 K/mm3 (0.0-0.4); Eosinophils % 4.2 % (0.1-12.0); Hematocrit 36.8 % (37.0-47.0); Hemoglobin 13.7 g/dL (12.2-16.2); Lymphocytes # 2.8 K/mm3 (0.7-4.5); Lymphocytes % 40.6 % (10-50); Mean Corpuscular HGB Conc 37.2 g/dL (31.8-35.4); Mean Corpuscular Hemoglobin 33.5 pg (27.0-31.2); Mean Platelet Volume 10.1 fl (7.4-10.4); Monocytes # 0.7 K/mm3 (0.1-1.0); Monocytes % 9.6 % (1.7-9.3); Neutrophils # 3.1 K/mm3 (1.8-7.8); Neutrophils % 45.1 % (37.0-80.0); Platelet Count 226 K/mm3 (142-424); Red Blood Count 4.09 M/mm3 (4.20-5.40); Red Cell Distribution Width 13.7 % (11.5-17.5)
[2023-04-09 18:22] LABS: Alanine Aminotransferase 42 U/L (12-78); Albumin Level 4.8 g/dl (3.5-5.0); Albumin/Globulin Ratio 1.4 (1.1-1.8); Alkaline Phosphatase 95 U/L (38-126); Aspartate Amino Transferase 37 U/L (14-36); Bilirubin,Total 1.3 mg/dl (0.2-1.3); Blood Urea Nitrogen 15 mg/dl (7-17); Carbon Dioxide 25 mmol/L (22.0-30.0); Chloride 106 mmol/L (98-107); Estimated Glomerular Filt Rate 74 ml/min (>60); GFR (African American) 89 ML/MIN (>60); Globulin 3.4 g/dL (1.3-3.2); Glucose 107 mg/dl (74-100); Sodium 142 mmol/L (136-145); Total Protein,Serum 8.2 g/dl (6.3-8.2)
[2023-04-09 18:34] LABS: Intact Parathyroid Hormone 21.6 pg/mL (7.5-53.5)
[2023-04-09 18:41] LABS: T4 (Thyroxine) 6.9 ug/dl (5.53-11.0); Triiodothryronine (T3) Uptake 29 % (23.5-40.5)
[2023-04-09 18:42] LABS: 25-OH Vitamin D, Total 63.8 ng/mL (30-100)
[2023-04-09 18:54] LABS: Thyroid Stimulating Hormone 0.08 uIU/mL (0.465-4.68)
[2023-04-13 13:50] LABS: Calcium, Ionized 4.8 mg/dL (4.5-5.6)
== END 2023-04-09 23:59 ==
LOC: LAB.DROPOF 18:34
PROVIDERS: PCP Student in an Organized Health Care Education/Training Program; Visit Provider Student in an Organized Health Care Education/Training Program
DX: E83.52 Hypercalcemia (principal); E04.1 Nontoxic single thyroid nodule; M06.9 Rheumatoid arthritis, unspecified; I10 Essential (primary) hypertension; E78.5 Hyperlipidemia, unspecified; Z79.899 Other long term (current) drug therapy
CPT/HCPCS: 80053; 82306; 82330; 83970; 84436; 84443; 84479; 85025

== ENCOUNTER 2023-04-16 08:54 | Outpatient (CLI) | payer BC, SELFPAY ==
--- NOTE | 2023-04-16 08:54 | US_ITS ---
FINAL REPORT TECHNIQUE: Sonographic images of the thyroid gland were obtained in the longitudinal and transverse planes. CLINICAL HISTORY: thyroid nodule COMPARISON: None FINDINGS: The right lobe measures 1.5 x 5.0 x 1.4 cm. There is a colloid cyst in the lower pole. There are no solid nodules. The left lobe measures 1.4 x 4.3 x 1.2 cm. The left lobe is homogeneous. There are no cystic or solid nodules. The isthmus measures 2 mm. This is normal. IMPRESSION: Small colloid cyst on the right. Otherwise, unremarkable exam. Reviewed, Interpreted and Dictated by Anayeli Pate MD Transcribed by Haley Dumont Authenticated and [facility]
[2023-04-16 09:57] LABS: Basophils # 0.1 K/mm3 (0-0.2); Basophils % 1.4 % (0.1-2.0); Eosinophils # 0.3 K/mm3 (0.0-0.4); Eosinophils % 6.9 % (0.1-12.0); Hematocrit 40.4 % (37.0-47.0); Hemoglobin 13.2 g/dL (12.2-16.2); Lymphocytes # 2.2 K/mm3 (0.7-4.5); Lymphocytes % 43.9 % (10-50); Mean Corpuscular HGB Conc 32.6 g/dL (31.8-35.4); Mean Corpuscular Hemoglobin 30.2 pg (27.0-31.2); Mean Corpuscular Volume 92.7 fl (81-99); Mean Platelet Volume 8.9 fl (7.4-10.4); Monocytes # 0.4 K/mm3 (0.1-1.0); Monocytes % 7.4 % (1.7-9.3); Neutrophils % 40.3 % (37.0-80.0); Platelet Count 229 K/mm3 (142-424); Red Blood Count 4.36 M/mm3 (4.20-5.40); Red Cell Distribution Width 13.8 % (11.5-17.5)
[2023-04-16 10:28] LABS: Iron 86 ug/dL (37-170)
[2023-04-16 10:38] LABS: Total Iron Binding Capacity 337 ug/dL (265-497)
[2023-04-16 11:06] LABS: Ferritin 41.9 ng/ml (11.1-264)
[2023-04-16 11:42] LABS: Folate > 20.00 ng/mL; Vitamin B12 > 1000 pg/mL (239-931)
[2023-04-17 08:19] LABS: Thyroid Peroxidase Antibodies 21 IU/mL (0-34)
[2023-04-18 08:20] LABS: Thyroid Stimulating Immunoglob <0.10 IU/L (0.00-0.55)
== END 2023-04-16 23:59 ==
LOC: RAD 08:54
PROVIDERS: PCP Student in an Organized Health Care Education/Training Program; Visit Provider Student in an Organized Health Care Education/Training Program
DX: E04.1 Nontoxic single thyroid nodule (principal); D64.9 Anemia, unspecified; R79.89 Other specified abnormal findings of blood chemistry
CPT/HCPCS: 36415; 76536; 82607; 82728; 82746; 83540; 83550; 84445; 85025; 86376

== ENCOUNTER 2023-05-28 18:00 | Outpatient (CLI) | payer BC, SELFPAY ==
[2023-05-28 18:48] LABS: Chol/HDL Ratio 3.7 (1-3.5); Cholesterol 133 mg/dl (140-200); HDL Cholesterol 36 mg/dl (40-60); Triglycerides 133 mg/dl (30-150); VLDL Cholesterol 27 mg/dL (0-40)
[2023-05-28 19:06] LABS: Free Thyroxine Index 1.8 ug/dL (5.93-13.13); T4 (Thyroxine) 5.7 ug/dl (5.53-11.0); Triiodothryronine (T3) Uptake 31 % (23.5-40.5)
[2023-05-28 19:20] LABS: Thyroid Stimulating Hormone 0.14 uIU/mL (0.465-4.68)
== END 2023-05-28 23:59 | disposition home or self-care (01) ==
LOC: LAB.DROPOF 05-29 10:09
PROVIDERS: PCP Student in an Organized Health Care Education/Training Program; Visit Provider Student in an Organized Health Care Education/Training Program
DX: E78.5 Hyperlipidemia, unspecified (principal); R79.89 Other specified abnormal findings of blood chemistry; Z79.899 Other long term (current) drug therapy
CPT/HCPCS: 80061; 84436; 84443; 84479

== ENCOUNTER 2023-12-24 13:26 | Outpatient (CLI) | payer BC, SELFPAY ==
--- NOTE | 2023-12-24 13:27 | MM_ITS ---
PROCEDURE INFORMATION: Exam: MG Bilateral Screening 3D Mammography Exam date and time: 12/24/2023 1:19 PM Age: 58 years old Clinical indication: Screening examination. TECHNIQUE: Imaging protocol: Bilateral Screening tomosynthesis and 2D mammography including computer-aided detection (CAD) when performed. COMPARISON: 1. MG MM DIG SCREENING MAMM BI W/CAD 08/07/2022 3:23 PM 2. MG MM DIG SCREENING MAMM BI W/CAD 05/16/2021 10:47 AM FINDINGS: MAMMOGRAPHY: Breast composition: There are scattered areas of fibroglandular density. Mass: None. Architectural distortion: None. Calcifications: No suspicious calcifications. Asymmetric density: None. Skin thickening: None. Axillary adenopathy: None. IMPRESSION: No mammographic evidence of malignancy. Annual screening is recommended unless otherwise clinically indicated. ASSESSMENT: BI-RADS Category 1: Negative.
== END 2023-12-24 23:59 | disposition home or self-care (01) ==
LOC: RAD 13:27
PROVIDERS: PCP Student in an Organized Health Care Education/Training Program; Visit Provider Nurse Practitioner Obstetrics & Gynecology
DX: Z12.31 Encounter for screening mammogram for malignant neoplasm of breast (principal)
CPT/HCPCS: 77063; 77067

== ENCOUNTER 2024-04-07 14:35 | Outpatient (CLI) | payer OTHER, SELFPAY ==
[2024-04-07 19:49] LABS: Creatinine,Urine Random 191 mg/dL (Not Estab.)
[2024-04-07 19:58] LABS: Microalbumin/Creatinine Ratio 6.2
== END 2024-04-07 23:59 | disposition home or self-care (01) ==
LOC: LAB.DROPOF 04-08 10:10
PROVIDERS: PCP Internal Medicine; Visit Provider Internal Medicine
DX: Z76.89 Persons encountering health services in other specified circumstances (principal)
CPT/HCPCS: 82043; 82570

== ENCOUNTER 2024-04-14 08:30 | Outpatient (CLI) | payer OTHER, SELFPAY ==
[2024-04-14 20:31] LABS: Chol/HDL Ratio 3.1 (1-3.5); Cholesterol 115 mg/dl (140-200); HDL Cholesterol 37 mg/dl (40-60); Triglycerides 124 mg/dl (30-150); VLDL Cholesterol 25 mg/dL (0-40)
[2024-04-14 20:42] LABS: Direct LDL Cholesterol 45.74 mg/dL (100-129)
[2024-04-14 21:03] LABS: Thyroid Stimulating Hormone 1.54 uIU/mL (0.465-4.68)
[2024-04-14 23:05] LABS: Hemoglobin A1C 5.9 % (4.0-6.0)
== END 2024-04-14 23:59 | disposition home or self-care (01) ==
LOC: LAB.DROPOF 04-15 13:37
PROVIDERS: PCP Internal Medicine; Visit Provider Internal Medicine
DX: Z76.89 Persons encountering health services in other specified circumstances (principal); I10 Essential (primary) hypertension; R73.03 Prediabetes; E78.5 Hyperlipidemia, unspecified; Z87.891 Personal history of nicotine dependence
CPT/HCPCS: 80061; 82306; 83036; 84443

== ENCOUNTER 2025-02-02 15:49 | Outpatient (CLI) | payer OTHER, SELFPAY ==
--- OUTSIDE RECORDS SUMMARY | 2025-01-19 11:10 | XMS_ITS | Encounter Summary ---
Author Organization [facility] Address [address] [place] [address] Care Team Providers Care Practice Office Associate Name Role Phone Simon Salo Coates DO Primary Care Provider [phone] Reason for Visit * Reason Comments Seropositive rheumatoid arth ritis of multiple sites (CMS/HC flares Been ongoing for abo ut 6 monthsMostly in hands and wrist Encounter Details Date Type Department Care Team (Latest Contact Info) Description 01/19/2025 11:10 AM EST Office Visit [facility] [address] [place] [address] Kate Fulton MD [address] [place] [address] Seropositive rheumatoid arthritis of multiple sites (CMS/HCC) (Primary Dx); High risk medication use; Greater trochanteric pain syndrome of left lower extremity; Primary osteoarthritis of both knees; Fibromyalgia; Pain of right lateral upper thigh Social History Tobacco Use Types Packs/Day Years Used Date Smoking Tobacco: Former Cigarettes 1 28 0 02/17/1980 - 02/17/2008 Passive Smoke Exposure: Past Smokeless Tobacco: Never Tobacco Cessation:Counseling Given: Not Answered Alcohol Use Standard Drinks/Week Comments Not Currently 1 (1 standard drink = 0.6 oz pur e alcohol) RARELY PHQ-2 Answer Date Recorded Patient Health Questionnaire-2 Score 0 01/19/2025 PHQ-9 Answer Date Recorded Patient Health Questionnaire-9 Score 0 01/19/2025 PHQ-2A Answer Date Recorded Patient Health Questionnaire-2 Score 0 09/04/2022 Comments No Sex and Gender Information Value Date Recorded Sex Assigned at Female 04/24/2021 1:57 PM EST Legal Sex Female 8:33 PM EDT Gender Identity Female 04/24/2021 1:57 PM EST Sexual Orientation Straight 04/24/2021 1: 57 PM EST documented as of this encounter Last Filed Vital Signs Vital Sign Reading Time Taken Comments Blood Pressure 117/77 01/19/2025 11:11 AM EST Pulse 89 01/19/2025 11:11 AM EST Temperature 36.8 C (98.2 F) 01/19/2025 11:11 AM EST Respiratory Rate 18 01/19/2025 11:1 1 AM EST Oxygen Saturation 98% 01/19/2025 11: 11 AM EST Inhaled Oxygen Concentration - - Weight 70.2 kg (154 lb 12.2 oz) 025 11:11 AM EST Height 167.6 cm (5' 6 ) 01/19/2025 11:1 1 AM EST Body Mass Index 24.98 01/19/2025 11:11 AM EST documented in this encounter Functional Status * Over the past 2 weeks, how often have you been bothered by any of the following problems? Question Answer Date of Assessment Author Little interest or pleasure in doing things Not at all 01/19/2025 11:17 AM EST Jett, Tempest Feeling down, depressed, or hopeless Not at all 01/19/2025 11:17 AM EST Jett, Tempest Patient Health Questionnaire -2 Score 0 01/19/2025 11:17 AM EST Jett Tempest * Question Answer Date of Assessment Author Trouble falling or staying a sleep, or sleeping too much Not at all 01/19/2025 11:17 AM EST Jett, Tempest Feeling tired or having tatum le energy Not at all 01/19/2025 11:17 AM EST Jett, Tempest Poor appetite or overeating Not at all 01/19/2025 11 :17 AM EST Jett, Tempest Feeling bad about yourself - or that you are a failure or have let yourself or your family down Not at all 01/19/2025 11:17 AM EST Jett, Tempest Trouble concentrating on thi ngs, such as reading the newspaper or watching television Not at all 01/19/2025 11:17 AM EST Norma Jett Moving or speaking so slowly that other people could have noticed. Or the opposite - being so fidgety or restless that you have been moving around a lot more than usual Not at all 01/19/2025 11:17 AM EST Norma Jett Thoughts that you would be b kelli off or hurting yourself in some way Not at all 01/19/2025 11:17 AM EST Norma Jett Patient Health Questionnaire -9 Score 0 01/19/2025 11:17 AM EST Norma Jett * How difficult have these problems made it for you to do your work, take care of things at home, or get along with other people? Answer Date of Assessment Author Not difficult at all 01/19/2025 11:17 AM EST Norma Delaney documented as of this encounter Miscellaneous Notes * Patient Instructions - Kate Fulton MD - 01/19/2025 11:10 AM EST Please share pictures of the current medication- leflunomide. Please continue enbrel What is meralgia paresthetica? This is a condition that causes pain, tingling, and numbness in the outer thigh. It happens when a nerve in that area gets squeezed or compressed. Different things can cause meralgia paresthetica. They include , wearing tight belts or waistbands, leaning the thigh on something for a long time, and injury to the area. Sometimes, it can happen after surgery in the area. Meralgia paresthetica is more common in people who have diabetes or obesity, and in older people. It is not a serious condition, and it usually goes away on its own. What are the symptoms of meralgia paresthetica? The main symptoms involve the upper, outer thigh. They can include: ?Pain - This can be burning or stinging. ?Tingling - This can feel like pins and needles in the area. ?Numbness ?Feeling extra sensitive to touch - Even light touch, like the feeling of clothing on the skin, might be unpleasant. ?Itching Symptoms usually affect only 1 of the thighs. Will I need tests? Your doctor should be able to tell if you have meralgia paresthetica by learning about your symptoms and doing a neurologic exam. In this exam, the doctor checks how your brain, nerves, and musclesare working. Sometimes, doctors do other tests to make sure that something else is not causing your symptoms. This is more likely if you have any symptoms that are different from the ones listed above. Other tests might include: ?MRI of the spine - This is a type of imaging test. It creates pictures of the inside of your body. ?Nerve conduction studies or electromyography - These check how well your nerves and muscles are working. How is meralgia paresthetica treated? It usually goes away on its own within a few weeks or months. If your symptoms bother you, it mighthelp to: ?Avoid wearing tight belts or clothing with a tight waistband. These can put pressure on the nerve that runs from your lower spine to your thigh. ?Try to keep a healthy body weight. Your doctor or nurse can talk to you about ways to lose weight if needed. ?Take pain-relieving medicines such as acetaminophen (brand name: Tylenol) or ibuprofen (sample brand names: Advil, Motrin). If your symptoms last for longer than 1 or 2 months, tell your doctor or nurse. They might suggest trying other treatments, such as pain medicines or a shot of medicine to numb the area. Sometimes, surgery is recommended for people with severe symptoms, but this is rare. All topics are updated as new evidence becomes available and our peer review process is complete. This topic retrieved from [employer] on: Jan 19, 2025. * Progress Notes - Kate Fulton MD - 01/19/2025 11:10 AM EST Subjective Amanda Parsons is a 60 y.o. female here for follow up on seropositive RA Past medical/surgical history CAD s/p CABG Seropositive RA and FMS HPI Patient of Dr Crowell, here for follow up on seropositive RA RF 16, CCP 7.9 , Xray no erosions onenbrel and plaquenil She is currently taking enbrel and leflunomide. She is not sure that she took plaquenil or if she tried to take it. She is doing good No joint pain/swelling/stiffness She hasn't been on steroids since August She has been under large amount of emotional stress as her in in September. She has good support and is coping ok She feels a lot of the flares were due to that. She hasn't used steroids since August I told her I can't find leflunomide prescription except in September 2023 She maybe using the old prescription She has been getting mini flares everynow and then, almost 2-3 times a month she would take ibuprofen No skin rash No CP/SOB No pink eye No IBD No recent infection No recurrent infection No B symptoms, lost weight due t o stress Rheum Medication Hx Failure/intolerance to methotrexate, leflunomide, liver enzyme elevation/GI side effects. Family hx Family History[1] SLE/RA/psoriasis/SSC/Sjogren's/myositis Allergies Topiramate Review of Systems review systems negative other than HPI Objective Physical Exam Constitutional: Appearance: Normal appearance. Comments: HENT: Head: Normocephalic and atraumatic. Right Ear: External ear normal. Left Ear: External ear normal. Mouth/Throat: Mouth: Mucous membranes are moist. Comments: No oral ulcers Adequate oral hygiene Adequate salivary pool Eyes: Conjunctiva/sclera: Conjunctivae normal. Cardiovascular: Rate and Rhythm: Normal rate and regular rhythm. Pulmonary: Effort: Pulmonary effort is normal. Breath sounds: Normal breath sounds. Abdominal: General: Abdomen is flat. Palpations: Abdomen is soft. Musculoskeletal: General: No swelling, tenderness or deformity. Cervical back: Normal range of motion. Skin: Findings: No rash. Neurological: General: No focal deficit present. Mental Status: She is alert. Labs/imaging: Autoimmune panel Reviewed Assessment/Plan Amanda Parsons is a 60 y.o. female here for Seropositive non erosive RA Patient shared pictures, she is using leflunomide that the expires in February, she has been taking 20 mg daily She is also doing weekly Enbrel She is not taking hydroxychloroquine CDAI 3 LOW DISEASE ACTIVITY Plan Will continue enbrel every week We will continue leflunomide 20 mg daily, prescription sent Discontinue hydroxychloroquine Advised patient to keep track of her flares, we will hold off on medication changes. Monitoring labs Pain at the right lateral upper thigh Distribution consistent with lateral cutaneous nerve of the thigh, meralgia paresthetica as possible She denies wearing tight clothing This has been going on for less than 3 months Offered physical therapy, patient preferred and out sheet , She is already taking [id number] NSAID and Tylenol if persistent refer to physical therapy, consider imaging, EMG or referral to pain management for anerve block if needed. Osteopenia Cont vitamin D Advised to take calcium as well High risk meds labs Flu vaccine FMS She is not on SSRI, she didn't knwo she had this Dx Recent major life stress She lost her spouse, she is coping well, has good support, declined social work consult Immunization History Administered Date(s) Administered Influenza, High-dose, Split Virus, Trivalent, Injectable, preservative free 01/19/2025 Influenza, Unspecified 01/28/2024 Influenza, injectable, quadrivalent, preservative free 12/16/2019 Influenza, seasonal, injectable 12/17/2013, 11/20/2017 Site Tour COVID-19 Vaccine (Purple Cap) 12+ 04/18/2020, 05/10/2020 Amanda was seen today for seropositive rheumatoid arthritis of multiple sites (cms/hc and flares. Diagnoses and all orders for this visit: Seropositive rheumatoid arthritis of multiple sites (CMS/[facility]) (Primary) - Comprehensive Metabolic Panel, Plasma; Future - CBC and Differential; Future - Sedimentation Rate, Automated; Future - C-Reactive Protein, Plasma; Future - influenza vac split high-dose (Fluzone High-Dose) vaccine 0.5 mL - Quantiferon TB Gold Plus; Future - Lipid panel; Future High risk medication use - Comprehensive Metabolic Panel, Plasma; Future - CBC and Differential; Future - Sedimentation Rate, Automated; Future - C-Reactive Protein, Plasma; Future - influenza vac split high-dose (Fluzone High-Dose) vaccine 0.5 mL - Quantiferon TB Gold Plus; Future - Lipid panel; Future Greater trochanteric pain syndrome of left lower extremity - Comprehensive Metabolic Panel, Plasma; Future - CBC and Differential; Future - Sedimentation Rate, Automated; Future - C-Reactive Protein, Plasma; Future - Lipid panel; Future Primary osteoarthritis of both knees - Comprehensive Metabolic Panel, Plasma; Future - CBC and Differential; Future - Sedimentation Rate, Automated; Future - C-Reactive Protein, Plasma; Future - Lipid panel; Future Fibromyalgia - Comprehensive Metabolic Panel, Plasma; Future - CBC and Differential; Future - Sedimentation Rate, Automated; Future - C-Reactive Protein, Plasma; Future - Lipid panel; Future Pain of right lateral upper thigh - Lipid panel; Future I spent 45 minutes in this patient encounter which includes reviewing records from the referring provider, gathering history, reviewing images, labs, evaluation, counseling and documentation. This note is written in medical language and may contain abbreviations or verbiage that are unfamiliar. It may appear blunt or direct. Medical documents are intended to carry relevant information, facts as evident, and the clinical opinion of the medical professional. Parts of this note were dictated using [employer] voice recognition software. As a result, errors may occur. When identified, these biologics specialist errors are corrected, but while every attempt is made to prevent/correctthese, errors may still exist. Kate Fulton MD. Insurance Counselor Division of Rheumatology Department of Internal Medicine [facility] [1] Family History Problem Relation Name Age of Onset Diabetes Mother Alexsandra Jo Hypertension Mother Alexsandra Jo Diabetes type II Mother Alexsandra Jo Heart attack Mother Alexsandra Jo Heart disease Mother Alexsandra Jo Obesity Mother Alexsandra Jo Hypertension Father Scott Clayton Obesity Sister Anne documented in this encounter Plan of Treatment Upcoming Encounters Date Type Department Care Team (Late st Contact Info) Description 05/04/2025 3:20 PM EDT Office Visit [facility] Wilbur [address] [place] [address] Narendra Grande MD [address] [place] [address] 08/21/2025 3:10 PM EDT Office Visit [facility] [address] [place] [address] Karen Crowell MD [address] [place] [address] documented as of this encounter Results * (ABNORMAL) Lipid panel (01/19/2025 12:26 PM EST) Cholesterol, Plasma 105 <200 mg/dL 01/19/2025 2:[address] [facility] Comment: Cholesterol Reference Range (age >17 years): Desirable <200 mg/dL Borderline 200 to 239 mg/dL Undesirable >239 mg/dL HDL 46(L) >=50 mg/dL 01/19/2025 2:[address] [facility] Comment: HDL Cholesterol Reference Ranges (age >17 years): Female, acceptable > or = 50 mg/dL Male, acceptable > or = 40 mg/dL Triglycerides, Plasma 82 <150 mg/dL 01/19/2025 2:[address] [facility] Comment: Triglyceride Reference Range (age >17 years): Desirable: <150 mg/dL Borderline high: 150 to 199 mg/dL High: 200 to 499 mg/dL Very high: >499 mg/dL Increased risk of pancreatitis: >1000 mg/dL Cholesterol/HDL Ratio 2 01/19/2025 2:[address] [facility] LDL, Calculated 43 <100 mg/dL 2:[address] [facility] Comment: LDL Cholesterol Reference Range (age >17 years): Optimal: <100 mg/dL Near or above optimal: 100 - 129 mg/dL Borderline high: 130 - 159 mg/dL High: 160 - 189 mg/dL Very high: >189 mg/dL LDL Cholesterol Reference Range (age <18 years): Desirable: <110 mg/dL Borderline: 110 - 129 mg/dL Undesirable: >130 mg/dL LDL Cholesterol is calculated using the Sierra/NIH equation. Fasting greater than or equal to 12 hours? Unknown 01/19/2025 2:[address] [facility] Blood Venous blood specimen / Unknown Venipuncture / Unknown 01/19/2025 12:26 PM EST 01/19/2025 12:27 PM EST us Kate Fulton MD LAB BLOOD ORDERABLES Final Re sult [facility] [address] [place] [address] * Quantiferon TB Gold Plus (01/19/2025 12:26 PM EST) [facility] Quantiferon TB Gold Plus Result Negative Negative 01/20/2025 6:[address] [facility] TB Nill Value 0.0348 IU/mL 01/20/2025 6:[address] [facility] TB Antigen 1 0.021 IU/mL 01/20/2025 6:[address] [facility] TB Antigen 2 0.0253 IU/mL 01/20/2025 6:[address] [facility] TB Mitogen 9.9652 IU/mL 01/20/2025 6:[address] [facility] Blood Venous blood specimen / Unknown Venipuncture / Unknown 01/19/2025 12:26 PM EST 01/19/2025 12:27 PM EST Narrative [facility] - 01/20/2025 6:17 PM EST Responses to the Mitogen positive control and occasionally to TB antigen can be above the assay range. For calculation purposes: IFN-gamma values > 10 IU/mL are handled as 10 IU/mL. us Kate Fulton MD LAB BLOOD ORDERABLES Final Re sult Performing Organization Address [facility] [place] [address] * C-Reactive Protein, Plasma (01/19/2025 12:26 PM EST) [facility] CRP, Plasma <3.0 <=8.0 mg/L 01/19/2025 2:45 PM EST [facility] Blood Venous blood specimen / Unknown Venipuncture / Unknown 01/19/2025 12:26 PM EST 01/19/2025 12:[address] [facility] - 01/19/2025 2:45 PM EST This CRP test is appropriate for assessment of infection, systemic inflammation and/or tissue injury. To assess cardiovascular disease risk order high sensitivity CRP (CRPH). us Kate Fulton MD LAB BLOOD ORDERABLES Final Re sult Performing Organization Address City/[facility]/ZIP Co de Phone Number [facility] [address] [place] [address] * Sedimentation Rate, Automated (01/19/2025 12:26 PM EST) Sedimentation Rate 6 <30 mm/hr 2024 2:[address] [facility] Blood Venous blood specimen / Unknown Venipuncture / Unknown 01/19/2025 12:26 PM EST 01/19/2025 12:27 PM EST us Kate Fulton MD LAB BLOOD ORDERABLES Final Re sult [facility] [address] [place] [address] * CBC and Differential (01/19/2025 12:26 PM EST) WBC Count 4.73 3.70 - 10.30 10*3/uL LAB HEMATOLOGY METHOD 01/19/2025 2:[address] [facility] RBC Count 4.48 3.90 - 5.20 10*6/uL LAB HEMATOLOGY METHOD 01/19/2025 2:[address] [facility] HGB 12.8 11.2 - 15.7 g/dL LAB HEMATOLOGY METHOD 01/19/2025 2:[address] [facility] HCT 40.0 34.0 - 45.0 % LAB HEMATOLOGY METHOD 01/19/2025 2:[address] [facility] Platelet Count 220 155 - 369 10*3/uL LAB HEMATOLOGY METHOD 01/19/2025 2:[address] [facility] MCV 89 79 - 98 fL LAB HEMATOLOGY METHOD 01/19/2025 2:[address] [facility] MCH 28.6 26.0 - 32.0 pg LAB HEMATOLOGY METHOD 01/19/2025 2:[address] [facility] MCHC 32.0 30.7 - 35.5 g/dL LAB HEMATOLOGY METHOD 01/19/2025 2:[address] [facility] RDW 13.7 11.5 - 14.5 % LAB HEMATOLOGY METHOD 01/19/2025 2:[address] [facility] MPV 10.3 8.8 - 12.5 fL LAB HEMATOLOGY METHOD 01/19/2025 2:[address] [facility] nRBC 0.0 <=0.0 per 100 WBCs LAB HEMATOLOGY METHOD 01/19/2025 2:[address] [facility] Differential Type Automated LAB HEMATOLOGY METHOD 01/19/2025 2:[address] [facility] Neutrophils % 38 % LAB HEMATOLOGY METHOD 01/19/2025 2:[address] [facility] Lymphocytes % 44 % LAB HEMATOLOGY METHOD 01/19/2025 2:[address] [facility] Monocytes % 13 % LAB HEMATOLOGY METHOD 01/19/2025 2:[address] [facility] Eosinophils % 4 % LAB HEMATOLOGY METHOD 01/19/2025 2:[address] [facility] Basophils % 1 % LAB HEMATOLOGY METHOD 01/19/2025 2:[address] [facility] Immature Granulocytes % 0 % LAB HEMATOLOGY METHOD 01/19/2025 2:[address] [facility] Neutrophils Absolute 1.79 1.60 - 6.10 10*3/uL LAB HEMATOLOGY METHOD 01/19/2025 2:[address] [facility] Lymphocytes Absolute 2.06 1.20 - 3.90 10*3/uL LAB HEMATOLOGY METHOD 01/19/2025 2:[address] [facility] Monocytes Absolute 0.62 0.30 - 0.90 10*3/uL LAB HEMATOLOGY METHOD 01/19/2025 2:[address] [facility] Eosinophils Absolute 0.19 0.00 - 0.50 10*3/uL LAB HEMATOLOGY METHOD 01/19/2025 2:[address] [facility] Basophils Absolute 0.06 0.00 - 0.10 10*3/uL LAB HEMATOLOGY METHOD 01/19/2025 2:[address] [facility] Immature Granulocytes Absolute 0.01 0.00 - 0.06 10*3/uL LAB HEMATOLOGY METHOD 01/19/2025 2:[address] [facility] Blood Venous blood specimen / Unknown Venipuncture / Unknown 01/19/2025 12:26 PM EST 01/19/2025 12:27 PM EST [facility] - 01/19/2025 2:16 PM EST Therapeutic decision making should be based on absolute values, rather than percentages. us Kate Fulton MD LAB BLOOD ORDERABLES Final Re sult [facility] [address] [place] [address] * (ABNORMAL) Comprehensive Metabolic Panel, Plasma (01/19/2025 12:26 PM EST) Glucose, Plasma 87 74 - 99 mg/dL 01/19/2025 2:[address] [facility] BUN, Plasma 10 8 - 23 mg/dL 01/19/2025 2:[address] [facility] Creatinine, Plasma 0.74 0.60 - 1.10 mg/dL 01/19/2025 2:[address] [facility] BUN/Creatinine Ratio 14 01/19/2025 2:[address] [facility] Sodium, Plasma 142 136 - 145 mmol/L 01/19/2025 2:[address] [facility] Potassium, Plasma 4.3 3.6 - 4.9 mmol/L 01/19/2025 2:[address] [facility] Chloride, Plasma 105 97 - 107 mmol/L 01/19/2025 2:[address] [facility] CO2, Plasma 25 22 - 29 mmol/L 01/19/2025 2:[address] [facility] Anion Gap 12 6 - 16 mmol/L 01/19/2025 2:[address] [facility] Total Calcium, Plasma 9.6 8.9 - 10.2 mg/dL 01/19/2025 2:[address] [facility] Total Protein 7.9 6.3 - 7.9 g/dL 01/19/2025 2:[address] [facility] Albumin, Plasma 4.6 3.5 - 5.2 g/dL 01/19/2025 2:[address] [facility] AST, Plasma 28 10 - 35 U/L 01/19/2025 2:[address] [facility] ALT, Plasma 29 10 - 35 U/L 01/19/2025 2:[address] [facility] Alkaline Phosphatase, Plasma 65 46 - 142 U/L 01/19/2025 2:[address] [facility] Total Bilirubin, Plasma 1.4(H) 0.2 - 1.1 mg/dL 01/19/2025 2:[address] [facility] eGFRcr 92.8 mL/min/1.7 3m*2 01/19/2025 2:[address] [facility] Comment:Reported eGFRcr in m L/min/1.73m2 is based the CKD-EPI 2020 equation that does not use a race coefficient. Blood Venous blood specimen / Unknown Venipuncture / Unknown 01/19/2025 12:26 PM EST 01/19/2025 12:27 PM EST us Kate Fulton MD LAB BLOOD ORDERABLES Final Re sult [facility] [address] [place] [address] documented in this encounter Visit Diagnoses Diagnosis Seropositive rheumatoid arthritis of multiple sites (CMS/HCC)- Primary High risk medication use Greater trochanteric pain syndrome of left lower extremity Primary osteoarthritis of both knees Fibromyalgia Unspecified myalgia and myositis Pain of right lateral upper thigh documented in this encounter Additional Health Concerns Assessment Noted Time PHQ-9 Depression Total Score: 0 01/20/20 11:17 AM EST A fall risk assessment has been complete d for the patient 01/19/2025 11:18 AM EST A Body Mass Index follow-up plan has been documented for the patient 01/19/2025 11:54 AM EST documented as of this encounter Care Teams Practice Office Associate Relationship Specialty Start Date End Date Salo Montes DO [address] [place] [address] PCP - General 04/28/24 documented as of this encounter
--- OUTSIDE RECORDS SUMMARY | 2025-02-02 15:53 | XMS_ITS | Clinical Summary ---
Author Organization [facility] yste Address [address] [place] [address] Care Team Providers Care Pouncer Machine Name Role Phone Unavailable Primary Care Provider Unavailabl e Social History Tobacco Use Types Packs/Day Years Used Date Smoking Tobacco: Never Assessed Abuse Screen Answer Date Recorded Unsafe at Home or Work/School Not on file Feels Threatened by Someone? Not on file 12/2022 Does Anyone Keep You from Co ntacting Others or Doint Things Outside the Home? Not on file 11/26/2022 Physical Sign of Abuse Present Not on file 1 Housing Stability Answer Date Recorded Current Living Arrangements Not on file 11/16 Potentially Unsafe Housing Conditions Not on elidia e 11/26/2022 Family and Community Support Answer Mamadou e Recorded Help with Day-to-Day Activities Not on file 11/26/2022 Lonely or Isolated Not on file 11/26/2022 Employment Answer Date Recorded Do you want help finding or keeping work or a peter b? Not on file 11/26/2022 Disabilities Answer Date Recorded Concentrating, Remembering, or Making Decisions Difficulty Not on file 11/26/2022 Doing Errands Independently Difficulty Not on fi le 11/26/2022 Education Answer Date Recorded Help with school or training? Not on file Preferred Language Not on file 11/26/2022 Comments Unknown Sex and Gender Information Value Date Recorded Sex Assigned at Not on file Legal Sex Female 12:15 PM EDT Gender Identity Not on file Sexual Orientation Not on file Plan of Treatment Health Maintenance Due Date Last Done Comments Annual Gynecologic Pelvic and Breast Exam 1965 TDAP/TD VACCINES (1 - Tdap) 01/18/1984 MAMMOGRAM 2005 COLOGUARD 2010 COLON CANCER SCREENING 5 YEAR SIGMOIDOSCOPY 2010 COLONOSCOPY 2010 COL[address]AL CANCER SCREENING 2010 CT COLONOGRAPHY 2010 FECAL OCCULT BLOOD TEST 2010 FIT Testing (1 year) 2010 Pneumococcal Vaccine 50+ (1 of 1 - PCV) 2015 ZOSTER VACCINE (1 of 2) 2015 ANNUAL PHYSICAL 09/01/2024 HEPATITIS C SCREENING 09/01/2024 INFLUENZA VACCINE 09/16/2024
--- OUTSIDE RECORDS SUMMARY | 2025-02-02 15:53 | XMS_ITS | Encounter Summary ---
Author Organization Healthcare Address [address] [place] [address] Care Team Providers Care Ice Platform Supervisor Name Role Phone DanySalo coto Primary Care Provider Encounter Details Date Type Department Care Team (Late st Contact Info) Description 01/30/2025 Telephone [facility] [address] [place] [address] Kate Fulton MD [address] [place] [address] Social History Tobacco Use Types Packs/Day Years Used Date Smoking Tobacco: Former Cigarettes 1 28 0 02/17/1980 - 02/17/2008 Passive Smoke Exposure: Past Smokeless Tobacco: Never Alcohol Use Standard Drinks/Week Comments Not Currently [...] PM EST documented as of this encounter Plan of Treatment Upcoming Encounters Date Type Department Care Team (Late st Contact Info) Description 05/04/2025 3:20 PM EDT Office Visit [facility] [address] [place] [address] Narendra Grande MD [address] [place] [address] 08/21/2025 3:10 PM EDT [facility] [address] [place] [address] Karen Crowell MD [address] [place] [address] documented as of this encounter Visit Diagnoses Not on filedocumented in this encounter Additional Health Concerns Assessment Noted Time PHQ-9 Depression Total Score: 0 01/20/20 11:17 AM EST A fall risk assessment has been complete d for the patient 01/19/2025 11:18 AM EST A Body Mass Index follow-up plan has been documented for the patient 01/19/2025 11:54 AM EST documented as of this encounter Care Teams Ice Platform Supervisor Relationship Specialty Start Date End Date Salo Montes DO [address] [place] [id number] PCP - General 04/28/24 documented as of this encounter
--- OUTSIDE RECORDS SUMMARY | 2025-02-02 15:53 | XMS_ITS | Encounter Summary ---
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 Essential hypertension Expected: 04/26/2025, Expires: 07/27/2026 documented as of this encounter Visit Diagnoses Diagnosis 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
--- OUTSIDE RECORDS SUMMARY | 2025-02-02 15:53 | XMS_ITS | Encounter Summary ---
Author Organization [facility] Address [address] [place] [address] Care Team Providers Care Health Club Manager Name Role Phone Magdy Higgins MD Primary Care Provider [phone] Jessica Veras DMD Unavailable [phone] Ivy Ferreira Unavailable Unavailable Francisco Mcdaniel DMD Unavailable [phone] Donna Fortune Unavailable Unavailable Danyelle Gunderson Primary Care Provider [phone] Kimmy Gould DMD Unavailable [phone] Salo Montes DO Primary Care Provider [phone] Reason for Visit * Reason Comments Med Refill Encounter Details Date Type Department Care Team (Late st Contact Info) Description 12/16/2020 Refill [facility] [place] [address] [place] [address] Narendra Grande MD [address] [place] [address] Coronary artery disease involving gambell coronary artery of gambell heart without angina pectoris (Primary Dx) Social History Tobacco Use Types Packs/Day Years Used Date Smoking Tobacco: Former Smokeless Tobacco: Never Alcohol Use Standard Drinks/Week Comments Yes 0 (1 standard drink = 0.6 oz pure alcohol) Alcoholic Drinks/day: Minimum alcohol consumption PHQ-2 Answer Date Recorded Patient Health Questionnaire-2 Score 0 11/14/2020 Comments Unknown Sex and Gender Information Value Date Recorded Sex Assigned at Female 04/24/2021 1:57 PM EST Legal Sex Female 8:33 PM EDT Gender Identity Female 04/24/2021 1:57 PM EST Sexual Orientation Straight 04/24/2021 1: 57 PM EST COVID-19 Exposure Response Date Recorded In the last month, have you been in contact with someone who was confirmed or suspected to have Coronavirus / COVID-19? No / Unsure 12/13/2020 9:48 AM EDT documented as of this encounter Plan of Treatment Upcoming Encounters Date Type Department Care Team (Late st Contact Info) Description 05/04/2025 3:20 PM EDT Office Visit [facility] [place] [address] [place] [address] Narendra Grande MD [address] [place] [address] 08/21/2025 3:10 PM EDT Office Visit [facility] [address] [place] [address] Karen Crowell MD [address] [place] [address] documented as of this encounter Visit Diagnoses Diagnosis Coronary artery disease involving gambell coronary artery of gambell heart without angina pectoris- Primary documented in this encounter Additional Health Concerns Assessment Noted Time A fall risk assessment has been complete d for the patient 12/13/2020 9:56 AM EDT documented as of this encounter Care Teams Health Club Manager Relationship Specialty Start Date End Date Magdy Higgins MD [address] [place] [address] PCP - General 06/29/20 06/24/23 Danyelle Gunderson PA [address] [place] [address] PCP - General 06/25/23 04/27/24 Salo Montes DO [address] [place], [place] [id number] PCP - General 04/28/24 Jessica Vears, DMD [address] [phone] Dentist Dental Dispensing Optician 07/30/20 Ivy Ferreira [facility] Dental Student Dental Dispensing Optician 07/30/20 06/20/22 Francisco Mcdaniel, DMD [address] [facility] [place] [address] Dental Student Dental Dispensing Optician 05/29/22 Donna Fortune Dental Student Dental Dispensing Optician 06/10/23 02/28/24 Kimmy Gould, DMD [address] [id number] Dentist 01/19/24 02/28/24 documented as of this encounter
--- OUTSIDE RECORDS SUMMARY | 2025-02-02 15:53 | XMS_ITS | Clinical Summary ---
Author Organization [facility] Address [address] 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 014 Active Cetirizine HCl (ZyrTEC ALLERGY) 10 MG capsule TAKE 1 CAPSULE Daily 014 Active White Petrolatum-Minera l Oil (Wh Petrol-Mineral Oil-Lanolin) 0.1-0.1 % ointment APPLY 1/2 INCH RIBBON INTO AFFECTED EYE(S) AT BEDTIME. 020 Active ibuprofen 800 MG tablet 023 Active co-enzyme Q-10 30 MG capsule Take 1 capsule (30 mg) by mouth daily. Active nystatin-triamcin olone (Mycolog II) ointment Apply to corners of mouth 2-4 times of day. 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 90 tablet 3 025 Active atorvastatin (Lipitor) 80 MG tabletIndications :Atherosclerotic heart disease of cachil dehe coronary artery without angina pectoris,Hyperlip idemia, unspecified hyperlipidemia type Take 1 tablet (80 mg) by mouth daily. 90 tablet 3 Active metoprolol succinate XL (Toprol-XL) 25 MG 24 hr tabletIndications :Essential hypertension Take 1 tablet (25 mg) by mouth daily. 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 25 tablet 2 Active UNABLE TO FIND Take 1 capsule by mouth 1-2 hrs prior to sleep Active UNABLE TO FIND Apply one click to inner labia daily Active Prasterone, DHEA, (DHEA 50 PO) TAKE ONE CAPSULE BY MOUTH DAILY IN MORNING Active tirzepatide (Mounjaro) 5 MG/0.5ML solution auto-injector solution pen-injector Inject 0.5 mL under the skin 1 time per week. Active etanercept (Enbrel SureClick) 50 MG/ML injectionIndicati ons:Seropositive rheumatoid arthritis of multiple sites (CMS/HCC) Inject 1 mL under the skin 1 time per week. 4 mL 6 Active leflunomide (Arava) 20 MG tablet Take 1 tablet by mouth daily. 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 90 tablet 3 025 2024 Discontinued hydroxychloroquin e (Plaquenil) 200 MG tabletIndications :Seropositive rheumatoid arthritis of multiple sites (CMS/HCC) Take 2 tablets (400 mg) by mouth daily. 180 tablet 1 025 2024 Discontinued etanercept (Enbrel SureClick) 50 MG/ML injectionIndicati ons:Seropositive rheumatoid arthritis of multiple sites (CMS/HCC) Inject 1 mL under the skin 1 time per week. 4 mL 1 025 2024 Discontinued(R eorder) Active Problems Patient Care Coordination No te Formatting of this note migh t be different from the original. Dental- Pt was referred to faculty practice (STEVIE Gould DMD) 02/29/24 Problem Noted Date Diagnosed Date Polyneuropathy 03/02/2024 Achilles tendinitis 12/28/2023 Acquired equinus deformity of both feet 12/28/19 24 Acquired hallux valgus of both feet 12/28/2023 Acquired hammer toes of both feet 12/28/2023 Fat pad atrophy of foot 12/28/2023 Metatarsalgia of both feet 12/28/2023 Pain in wrist 12/28/2023 Right arm pain 12/28/2023 Perioral dermatitis 12/28/2023 Pre-diabetes 12/28/2023 Thyrotoxicosis, unspecified without thyrotoxic crisis or storm 10/12/2023 Calcific tendinitis, other site 10/05/2023 Bilateral primary osteoarthr itis of first carpometacarpal joints 10/05/2023 Bilateral primary osteoarthritis of knee 024 Fibromyalgia 10/05/2023 Rheumatoid arthritis involvi ng multiple sites with positive rheumatoid factor 10/05/2023 Pain in left hip 10/05/2023 Presence of aortocoronary bypass graft Unstable angina 06/25/2023 Hypertension 06/25/2023 Mixed hyperlipidemia 06/25/2023 Other specified abnormal findings of blood chemi stry 05/28/2023 Other specified disorders of thyroid 04/16/2023 Strain of unspecified muscle s, fascia and tendons at forearm level, right arm, initial encounter 01/24/2023 Unspecified injury of right elbow, initial encou nter 01/24/2023 Unspecified injury of right forearm, initial enc ounter 01/24/2023 Unspecified injury of right wrist, hand and finger(s), initial encounter 01/24/2023 S/P CABG x 2 02/20/2022 Angina pectoris, unstable 02/20/2022 Essential hypertension 12/12/2021 Hyperlipidemia 12/12/2021 ASCVD (arteriosclerotic cardiovascular disease) 12/12/2021 Abnormal finding on radiology exam 09/22/2019 RCE (recurrent corneal erosion) 06/29/2019 Allergic conjunctivitis, bilateral 04/05/2019 Eye pain 03/28/2019 Palpitations 10/28/2018 Rheumatoid arthritis, seropositive, multiple sit es 05/28/2018 Migraine with aura 04/05/2017 Abnormal head MRI 01/07/2017 Headache 11/18/2016 Ocular migraine 11/18/2016 Myalgia 04/02/2016 Right ankle pain 09/19/2014 CAD (coronary artery disease) 03/28/2014 Osteoarthritis 09/16/2013 Rheumatoid arthritis 09/15/2013 Resolved Problems Problem Noted Date Diagnosed Date Resolved Date Cough 12/28/2023 01/01/2025 Otitis media 12/28/2023 11/06/2024 Other specified soft tissue disorders 12/07/2023 04/06/2024 Spondylolisthesis, lumbar region 12/07/2023 04/06/2024 Encounters Date Type Department Care Team Description 01/30/2025 Telephone [facility] Medicine Specialties [address] [place] [address] Kate Fulton MD 01/26/2025 [facility] Nallen Wilbur 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; Essential hypertension 01/23/2025 Results Follow-Up [facility] Medicine Specialties [address] [place] [address] Kate Fulton MD 01/19/2025 11:10 AM EST Office Visit [facility] Medicine Specialties [address] [place] [address] Kate Fulton MD Seropositive rheumatoid arthritis of multiple sites (CMS/HCC) (Primary Dx); High risk medication use; Greater trochanteric pain syndrome of left lower extremity; Primary osteoarthritis of both knees; Fibromyalgia; Pain of right lateral upper thigh 01/19/2025 Refill [facility] Medicine Specialties [address] [place] [phone] Maury Lester, PharmD Seropositive rheumatoid arthritis of multiple sites ([facility]) (Primary Dx) 01/19/2025 Travel 01/18/2025 Travel 01/16/2025 Refill [facility] Medicine Specialties [address] [place] [phone] Karen Crowell MD Seropositive rheumatoid arthritis of multiple sites ([facility]) 11/17/2024 Refill [facility] Medicine Specialties [address] [place] [phone] Karen Crowell MD Seropositive rheumatoid arthritis of multiple sites ([facility]) from Last 3 Months Immunizations Immunization Administration Dates Next Due Influenza, High-dose, Split Virus, Trivalent, Injectable, preservative free 01/19/2025 Influenza, Unspecified 01/28/2024 Influenza, injectable, quadrivalent, preservativ e free 12/16/2019 Influenza, seasonal, injectable 11/20/2017,12/17 Giggzo-Lexplique COVID-19 Vaccine (Purple Cap) 12 + 05/10/2020,04/18/2020 Family History Medical History Relation Name Comments Arthritis Father Scott Clayton Hypertension Father Scott Clayton Arthritis Mother Alexsandra Jo Diabetes Mother Alexsandra Jo Diabetes type II Mother Alexsandra Jo Heart attack Mother Alexsandra Jo Heart disease Mother Alexsandra Jo Hypertension Mother Alexsandra Jo Obesity Mother Alexsandra Jo Obesity Sister Anne Relation Name Status Comments Father Scott Clayton Mother Alexsandra Jo Sister Anne Social History Tobacco Use Types Packs/Day Years [...] Orientation Straight 04/24/2021 1: 57 PM EST Last Filed Vital Signs Vital Sign Reading [...] Mass Index 24.98 01/19/2025 11:11 AM EST Plan of Treatment Upcoming Encounters Date Type Department Care Team (Late st Contact Info) Description 05/04/2025 3:20 PM EDT Office Visit [facility] Nallen Johnson [address] [place] [address] Narendra Grande MD [address] [place] [phone] 08/21/2025 3:10 PM EDT Office Visit [facility] Medicine [facility] [address] [place] [address] Karen Crowell MD [address] [place] [phone] Health Maintenance Due Date Last Done Comments [facility]-Infant/Child/Adol SDOH Screenings 1965 [facility]- SDOH Screenings 1983 [facility]-Adult SDOH Screenings 1983 [facility]-DTaP,Tdap,and Td Vaccines (1 - Tdap) 01/18/1984 [facility]-Pneumococcal Vaccine: 50+ Years (1 of 2 - PCV) 01/18/1984 [facility]-Zoster Vaccines (1 of 2) 01/18/1984 [facility]-Pap Smear 1986 [facility]-Cervical Cancer Screening 1995 [facility]-HPV/Cotest 1995 CT Colonography 2010 Colonoscopy 2010 FIT-DNA 2010 FIT 2010 FOBT 2010 Sigmoidoscopy 2010 [facility]-Colorectal Cancer Screening 2010 [facility]-Breast Cancer Screening 2015 [facility]-RSV Vaccine: 60+ Years or (1 - Risk 50-74 years 1-dose series) 2015 [id number] Vaccine (3 - Pfizer risk series) 06/07/2020 05/10/2020, 04/18/2020 Dental X-Ray: Full Mouth 10/17/2022 10/17/2019 Dental X-Ray: Bitewings 05/17/2023 05/15/2022, 10/16 Dental Oral Exam 05/05/2024 11/05/2023, 05/15/2022 Dental Prophylaxis 05/05/2024 11/05/2023, 0 05/15/2022, 03/08/2021, Additional history exists [facility]-Depression Screening 01/19/2026 01/19/2025, 1205/2024 [facility]-HIV Screening Completed 09/15/2013 [facility]-Hepatitis C Screening Completed 09/21/2017, [facility]-Diabetes: Hemoglobin A1C Discontinued 08/11/2023 [facility]-Influenza Vaccine Completed 01/19/2025 , 01/28/2024, 12/16/2019, Additional history exists HPV Vaccines (No Doses Required) Completed [facility]-HIB Vaccines Aged Out No longer e ligible based on patient's age to complete this topic [facility]-Hepatitis A Vaccines Aged Out No longer eligible based on patient's age to complete this topic [facility]-IPV Vaccines Aged Out No longer e ligible based on patient's age to complete this topic [facility]-Rotavirus Vaccines Aged Out No lo nger eligible based on patient's age to complete this topic Medical Devices Implanted Type Area Bpm Developer Device Identifier Shelf Expiration Date Model / Serial / Lot Allograft- Implanted:Qt y: 19 on 11/15/2021 by Laura Negron DMD Allograft Right: Tooth [employer] xenograft 06/26/2024 070.226 / [id number])2 [id number] / [id number] Description:Allograft, Xenog raft Allograft- Implanted:Qt y: 1 on 11/15/2021 by Laura Negron DMD Allograft Right: Allograft 070.226 04/24/2024 [employer] / [id number](17) [id number](21)2 [id number] / [id number] Allograft- Implanted:Qt y: 1 on 11/15/2021 by Laura Negron DMD Allograft Left: Tooth 11/07/2023 [id number] / [id number](17) [id number](21)21 [id number] / REF 070.226 Description:Allograft Allograft- Implanted:Qt y: 1 on 11/15/2021 by Laura Negron DMD Dental Bilateral: Maxilla [employer] 09/25/2025 070.226 / [id number])2 [id number])21 [id number] / [id number] 1 Description:Placed allograft and xenograft in #13, 32,29, and 30 placed implant in 19,29,31 under IV . Allograft- Implanted:Qt y: 1 on 11/15/2021 by Laura Negron DMD Dental Bilateral: Maxilla [employer] 04/24/2024 070.226 / [id number]) [id number](21)2 [id number] / [id number] Description:Placed allograft and xenograft in #13, 32,29, and 30 placed implant in 19,29,31 under IV . Xenograft- Implanted:Qt y: 3 on 11/15/2021 by Laura Negron DMD Dental Bilateral: Mandible [employer] 06/26/2024 S1-0210-025 / [id number]) [id number](10)[id number] / [id number] Description:Placed allograft and xenograft in #13, 32,29, and 30 placed implant in 19,29,31 under IV . 4.1 X 8 Blt #30- 2 Implanted:Qt y: 1 on 11/15/2021 by Laura Negron DMD Dental Right: Mandible [employer] [facility] 08/22/2026 021.5308 / [id number] 0707(10)LYR 39 / [id number] Description:Placed allograft and xenograft in #13, 32,29, and 30 placed implant in 19,29,31 under IV . #19 & #29 4.8 X 8 Wn-11/15/2021 Implanted:Qt y: 2 on 11/15/2021 by Laura Negron DMD Dental Right: Mandible [employer] [facility] 07/25/2026 033.611S / [id number](11) 175807(17)2 10615(10)LV P04 / [id number] Description:Placed allograft and xenograft in #13, 32,29, and 30 placed implant in 19,29,31 under IV . Healing Cap- 2 Implanted:Qt y: 1 on 11/15/2021 by Laura Negron DMD Dental Right: Mandible Description:Placed allograft and xenograft in #13, 32,29, and 30 placed implant in 19,29,31 under IV . Blt Rc 4.1 X12 Placed In 07/27- 4 Implanted:Qt y: 2 on 03/27/2023 by Mike Grove [facility] Bilateral: Maxilla [employer] [facility] 02/18/2028 021.5312 / [id number](11) 363791(17)2 81897(10)CN XJ2 / [id number] Description:Placed implant 6 & 11 with BLT RC 4.1 X 12 , with healing caps placed size 3.3 X 0 RC . Placed allograft and xenograft . Healing Caps 3.3 X 0-03/27/2023 Implanted:Qt y: 2 on 03/27/2023 by Mike [facility] Bilateral: Maxilla [employer] 03/09/2027 024.4100S / [id number](11) 408708(17)2 49623(10)TF C98 / [id number] Description:Placed implant 6 & 11 with BLT RC 4.1 X 12 , with healing caps placed size 3.3 X 0 RC . Placed allograft and xenograft . Allograft-03/27/2023 Implanted:Qt y: 1 on 03/27/2023 by Mike [facility] Bilateral: Maxilla [employer] [facility] 11/02/2026 070.226 / [id number]) [id number])2 [id number] / [id number] 2 Description:Placed implant 6 & 11 with BLT RC 4.1 X 12 , with healing caps placed size 3.3 X 0 RC . Placed allograft and xenograft . Xenograft-03/27/2023 Implanted:Qt y: 1 on 03/27/2023 by Mike [facility] Bilateral: Maxilla [employer] [facility] 12/30/2025 S1-0210-025 / [id number]) [id number](10)[id number] / [id number] Description:Placed implant 6 & 11 with BLT RC 4.1 X 12 , with healing caps placed size 3.3 X 0 RC . Placed allograft and xenograft . #20 Blt 3.3 X 10 Nc-07/30/2023 Implanted:Qt y: 1 on 07/30/2023 by Beatris Bullock MD Dental Left: Mandible [employer] [facility] 01/20/2028 021.3310 / [id number]) [id number](17)2 61473(10)CJ CP1 / [id number] Description:Placed #20 BLT 3 .3 X 10 NC with closure cap. Nc Closure Cap 2.8 X0-07/30/2023 Implanted:Qt y: 1 on 07/30/2023 by Beatris Bullock MD Dental Left: Mandible [employer] [facility] 12/02/2023 024.2100S / [id number] / [id number] Description:Placed #20 BLT N C 3.30 X 10 with a closure cap. Procedures Procedure Name Priority Date/Time Associated Diagnosis Comments COMPREHENSIVE METABOLIC PANEL, PLASMA Routine 01/19/2025 12:26 PM EST Seropositive rheumatoid arthritis of multiple sites ([facility]) High risk medication use Greater trochanteric pain syndrome of left lower extremity Primary osteoarthritis of both knees Fibromyalgia CBC WITH AUTO DIFFERENTIAL Routine 01/19/2025 12:26 PM EST Seropositive rheumatoid arthritis of multiple sites ([facility]) High risk medication use Greater trochanteric pain syndrome of left lower extremity Primary osteoarthritis of both knees Fibromyalgia SEDIMENTATION RATE, AUTOMATED Routine 01/19/2025 12:26 PM EST Seropositive rheumatoid arthritis of multiple sites ([facility]) High risk medication use Greater trochanteric pain syndrome of left lower extremity Primary osteoarthritis of both knees Fibromyalgia C-REACTIVE PROTEIN, PLASMA Routine 01/19/2025 12:26 PM EST Seropositive rheumatoid arthritis of multiple sites ([facility]) High risk medication use Greater trochanteric pain syndrome of left lower extremity Primary osteoarthritis of both knees Fibromyalgia QUANTIFERON TB GOLD PLUS Routine 01/19/2025 12:26 PM EST Seropositive rheumatoid arthritis of multiple sites ([facility]) High risk medication use LIPID PROFILE, PLASMA Routine 01/19/2025 12:26 PM EST Seropositive rheumatoid arthritis of multiple sites ([facility]) High risk medication use Greater trochanteric pain syndrome of left lower extremity Primary osteoarthritis of both knees Fibromyalgia Pain of right lateral upper thigh PROPHYLAXIS - ADULT Routine 11/05/2023 9 :00 AM EDT Dental calculus PERIODIC ORAL EVALUATION - ESTABLISHED PATIENT Routine 11/05/2023 9:00 AM EDT Dental calculus HEMOGLOBIN A1C Routine 08/11/2023 3:24 PM EDT Nontoxic single thyroid nodule BITEWINGS - 2 RADIOGRAPHIC IMAGES Routine 05/15/2022 9:00 AM EDT Partial edentulism, unspecified edentulism class INTRAORAL - COMPLETE SERIES OF RADIOGRAPHIC IMAGES Routine 10/17/2019 12:00 AM EDT HEPATITIS C ANTIBODY - ED W/REFLEX TO HCV QUANT PCR Routine 09/21/2017 2:22 PM EDT HIV 1/2 ANTIBODY/ANTIGEN SCREEN WITH REFLEX TO HIV I/II DIFFERENTIATION Routine 09/15/2013 1:56 PM EDT from Last 3 Months or Most Recently Relevant to Health Maintenance Results * Quantiferon TB Gold Plus (01/19/2025 12:26 PM EST) Quantiferon TB Gold Plus Result Negative Negative 01/20/2025 6:17 PM EST [facility] TB Nill Value 0.0348 IU/mL 01/20/2025 6:17 PM EST [facility] TB Antigen 1 0.021 IU/mL 01/20/2025 6:17 PM EST [facility] TB Antigen 2 0.0253 IU/mL 01/20/2025 6:17 PM EST [facility] TB Mitogen 9.9652 IU/mL 01/20/2025 6:17 PM EST [facility] Blood Venous blood specimen / Unknown Venipuncture / Unknown 01/19/2025 12:26 PM EST 01/19/2025 12:27 PM EST Narrative [facility] - 01/20/2025 6:17 PM EST Responses to the Mitogen positive control and occasionally to TB antigen can be above the assay range. For calculation purposes: IFN-gamma values > 10 IU/mL are handled as 10 IU/mL. us Kate Fulton MD LAB BLOOD ORDERABLES Final Re sult [facility] [address] [place] [address] * Sedimentation Rate, Automated (01/19/2025 12:26 PM EST) Sedimentation Rate 6 <30 mm/hr 2024 2:36 PM EST [facility] Blood Venous blood specimen / Unknown Venipuncture / Unknown 01/19/2025 12:26 PM EST 01/19/2025 12:27 PM EST us Kate Fulton MD LAB BLOOD ORDERABLES Final Re sult [facility] [address] [place] [address] * CBC and Differential (01/19/2025 12:26 PM EST) WBC Count 4.73 3.70 - 10.30 10*3/uL LAB HEMATOLOGY METHOD 01/19/2025 2:16 PM EST [facility] RBC Count 4.48 3.90 - 5.20 10*6/uL LAB HEMATOLOGY METHOD 01/19/2025 2:16 PM EST [facility] HGB 12.8 11.2 - 15.7 g/dL LAB HEMATOLOGY METHOD 01/19/2025 2:16 PM EST [facility] HCT 40.0 34.0 - 45.0 % LAB HEMATOLOGY METHOD 01/19/2025 2:16 PM EST [facility] Platelet Count 220 155 - 369 10*3/uL LAB HEMATOLOGY METHOD 01/19/2025 2:16 PM EST [facility] MCV 89 79 - 98 fL LAB HEMATOLOGY METHOD 01/19/2025 2:16 PM EST [facility] MCH 28.6 26.0 - 32.0 pg LAB HEMATOLOGY METHOD 01/19/2025 2:16 PM EST [facility] MCHC 32.0 30.7 - 35.5 g/dL LAB HEMATOLOGY METHOD 01/19/2025 2:16 PM EST [facility] RDW 13.7 11.5 - 14.5 % LAB HEMATOLOGY METHOD 01/19/2025 2:16 PM EST [facility] MPV 10.3 8.8 - 12.5 fL LAB HEMATOLOGY METHOD 01/19/2025 2:16 PM EST [facility] nRBC 0.0 <=0.0 per 100 WBCs LAB HEMATOLOGY METHOD 01/19/2025 2:16 PM EST [facility] Differential Type Automated LAB HEMATOLOGY METHOD 01/19/2025 2:16 PM EST [facility] Neutrophils % 38 % LAB HEMATOLOGY METHOD 01/19/2025 2:16 PM EST [facility] Lymphocytes % 44 % LAB HEMATOLOGY METHOD 01/19/2025 2:16 PM EST [facility] Monocytes % 13 % LAB HEMATOLOGY METHOD 01/19/2025 2:16 PM EST [facility] Eosinophils % 4 % LAB HEMATOLOGY METHOD 01/19/2025 2:16 PM EST [facility] Basophils % 1 % LAB HEMATOLOGY METHOD 01/19/2025 2:16 PM EST [facility] Immature Granulocytes % 0 % LAB HEMATOLOGY METHOD 01/19/2025 2:16 PM EST [facility] Neutrophils Absolute 1.79 1.60 - 6.10 10*3/uL LAB HEMATOLOGY METHOD 01/19/2025 2:16 PM EST [facility] Lymphocytes Absolute 2.06 1.20 - 3.90 10*3/uL LAB HEMATOLOGY METHOD 01/19/2025 2:16 PM EST [facility] Monocytes Absolute 0.62 0.30 - 0.90 10*3/uL LAB HEMATOLOGY METHOD 01/19/2025 2:16 PM EST [facility] Eosinophils Absolute 0.19 0.00 - 0.50 10*3/uL LAB HEMATOLOGY METHOD 01/19/2025 2:16 PM EST [facility] Basophils Absolute 0.06 0.00 - 0.10 10*3/uL LAB HEMATOLOGY METHOD 01/19/2025 2:16 PM EST [facility] Immature Granulocytes Absolute 0.01 0.00 - 0.06 10*3/uL LAB HEMATOLOGY METHOD 01/19/2025 2:16 PM EST [facility] Blood Venous blood specimen / Unknown Venipuncture / Unknown 01/19/2025 12:26 PM EST 01/19/2025 12:27 PM EST [facility] - 01/19/2025 2:16 PM EST Therapeutic decision making should be based on absolute values, rather than percentages. us Kate Fulton MD LAB BLOOD ORDERABLES Final Re sult [facility] [address] [place] [address] * C-Reactive Protein, Plasma (01/19/2025 12:26 PM EST) CRP, Plasma <3.0 <=8.0 mg/L 01/19/2025 2:45 PM EST [facility] Blood Venous blood specimen / Unknown Venipuncture / Unknown 01/19/2025 12:26 PM EST 01/19/2025 12:27 PM EST Narrative [facility] - 01/19/2025 2:45 PM EST This CRP test is appropriate for assessment of infection, systemic inflammation and/or tissue injury. To assess cardiovascular disease risk order high sensitivity CRP (CRPH). us Kate Fulton MD LAB BLOOD ORDERABLES Final Re sult [facility] [address] [place] [address] * (ABNORMAL) Lipid panel (01/19/2025 12:26 PM EST) Cholesterol, Plasma 105 <200 mg/dL 01/19/2025 2:45 PM EST [facility] Comment: Cholesterol Reference Range (age >17 years): Desirable <200 mg/dL Borderline 200 to 239 mg/dL Undesirable >239 mg/dL HDL 46(L) >=50 mg/dL 01/19/2025 2:45 PM EST [facility] Comment: HDL Cholesterol Reference Ranges (age >17 years): Female, acceptable > or = 50 mg/dL Male, acceptable > or = 40 mg/dL Triglycerides, Plasma 82 <150 mg/dL 01/19/2025 2:45 PM EST [facility] Comment: Triglyceride Reference Range (age >17 years): Desirable: <150 mg/dL Borderline high: 150 to 199 mg/dL High: 200 to 499 mg/dL Very high: >499 mg/dL Increased risk of pancreatitis: >1000 mg/dL Cholesterol/HDL Ratio 2 01/19/2025 2:45 PM EST [facility] LDL, Calculated 43 <100 mg/dL 2:45 PM EST [facility] Comment: LDL Cholesterol Reference Range (age [...] 12 hours? Unknown 01/19/2025 2:45 PM EST [facility] Blood Venous blood specimen / Unknown Venipuncture / Unknown 01/19/2025 12:26 PM EST 01/19/2025 12:27 PM EST us Kate Fulton MD LAB BLOOD ORDERABLES Final Re sult [facility] [address] [place] [address] * (ABNORMAL) Comprehensive Metabolic Panel, Plasma (01/19/2025 12:26 PM EST) Glucose, Plasma 87 74 - 99 mg/dL 01/19/2025 2:45 PM EST [facility] BUN, Plasma 10 8 - 23 mg/dL 01/19/2025 2:45 PM EST [facility] Creatinine, Plasma 0.74 0.60 - 1.10 mg/dL 01/19/2025 2:45 PM EST [facility] BUN/Creatinine Ratio 14 01/19/2025 2:45 PM EST [facility] Sodium, Plasma 142 136 - 145 mmol/L 01/19/2025 2:45 PM EST [facility] Potassium, Plasma 4.3 3.6 - 4.9 mmol/L 01/19/2025 2:45 PM EST [facility] Chloride, Plasma 105 97 - 107 mmol/L 01/19/2025 2:45 PM EST [facility] CO2, Plasma 25 22 - 29 mmol/L 01/19/2025 2:45 PM EST [facility] Anion Gap 12 6 - 16 mmol/L 01/19/2025 2:45 PM EST [facility] Total Calcium, Plasma 9.6 8.9 - 10.2 mg/dL 01/19/2025 2:45 PM EST [facility] Total Protein 7.9 6.3 - 7.9 g/dL 01/19/2025 2:45 PM EST [facility] Albumin, Plasma 4.6 3.5 - 5.2 g/dL 01/19/2025 2:45 PM EST [facility] AST, Plasma 28 10 - 35 U/L 01/19/2025 2:45 PM EST [facility] ALT, Plasma 29 10 - 35 U/L 01/19/2025 2:45 PM EST [facility] Alkaline Phosphatase, Plasma 65 46 - 142 U/L 01/19/2025 2:45 PM EST [facility] Total Bilirubin, Plasma 1.4(H) 0.2 - 1.1 mg/dL 01/19/2025 2:45 PM EST [facility] eGFRcr 92.8 mL/min/1.7 3m*2 01/19/2025 2:45 PM EST [facility] Comment:Reported eGFRcr in m L/min/1.73m2 is based the CKD-EPI 2020 equation that does not use a race coefficient. Blood Venous blood specimen / Unknown Venipuncture / Unknown 01/19/2025 12:26 PM EST 01/19/2025 12:27 PM EST us Kate Fulton MD LAB BLOOD ORDERABLES Final Re sult [facility] [address] [place] [address] * (ABNORMAL) Hemoglobin A1c (08/11/2023 3:24 PM EDT) Hemoglobin A1c 5.9(H) <5.7 % 08/11/2023 8:53 PM EDT [facility] Blood Venous blood specimen / Unknown Venipuncture / Unknown 08/11/2023 3:24 PM EDT 08/11/2023 3:24 PM EDT Narrative [facility] - 08/11/2023 8:53 PM EDT HA1C Interpretive Data: Diagnosis of Diabetes: Diabetic > or = 6.5% Pre-diabetic 5.7 to 6.4% Non-diabetic < or = 5.6% Glycemic Targets for Type I and Type II Diabetics: Non- Adults <7.0% Adults <6.0% Children and Adolescents <7.5% Source: [place] [employer]. Standards of medical care in diabetes,2017. Diabetes Care.2017:40 (suppl 1):S1-S135. HbA1c assay performed by an ion-exchange chromatography method that is certified traceable to the DCCT. Abena Duran MD LAB BLOOD ORDERABLES Final Result [facility] [address] [place] [address] * [place] Hepatitis C Antibody (09/21/2017 2:22 PM EDT) Pathologist [facility] Hepatitis C Ab NEGATIVE Reference Range: Negative [facility] 09/21/2017 2:22 PM EDT 09/21/2017 2:45 PM EDT Brian Burnette MD LAB BLOOD ORDERABLES Final Res ult [facility] * HIV 1 & 2 Antibody/Antigen Screen (09/15/2013 1:56 PM EDT) Pathologist [facility] HIV 1 Result NONREACTIVE Screening for HIV 1 and 2 antibodies is NONREACTIVE. No confirmatory testing is required. [facility] 09/15/2013 1:56 PM EDT 09/15/2013 2:47 PM EDT Kat Dorman APRN LAB BLOOD ORDERABLES Final Res ult [facility]QUEST from Last 3 Months or Most Recently Relevant to Health Maintenance Insurance [facility] MEDICAID Member Subscriber Plan / Payer (Ef fective 2024-Present) Name:MARTAH PARSONS Relation to Subscriber:Self Name:Martha Parsons Payer ID:[id number] (NAIC) Group ID:Not on file Type:Not on file Address: [place] [id number] Care Teams Batch And Furnace Manager Relationship Specialty Start Date End Date Salo Montes DO [address] [place] [address] PCP - General 04/28/24
--- OUTSIDE RECORDS SUMMARY | 2025-02-02 15:53 | XMS_ITS | Encounter Summary ---
Author Organization [facility] Address [address] [address] Care Team Providers Care Sales Office Administrator Name Role Phone DanySalo coto Primary Care Provider [phone] Encounter Details Date Type Department Care Team (Latest Contact Info) Description 01/19/2025 Travel Social History Tobacco Use Types Packs/Day Years [...] PM EST documented as of this encounter Functional Status * Over the [...] -2 Score 0 01/19/2025 11:17 AM EST Jett, Tempest * Question Answer Date of Assessment Author Trouble falling or staying a sleep, or sleeping too much Not at all 01/19/2025 11:17 AM EST Maliha Tempest Feeling tired or having tatum le energy Not at all 01/19/2025 11:17 AM EST Maliha, Tempest Poor appetite or overeating Not at all 01/19/2025 11 :17 AM EST Maliha, Tempest Feeling bad about yourself - or that you are a failure or have let yourself or your family down Not at all 01/19/2025 11:17 AM EST Maliha Tempest Trouble concentrating on thi ngs, such as reading the newspaper or watching television Not at all 01/19/2025 11:17 AM EST Trudy Jettpest Moving or speaking so slowly that other [...] Norma Delaney documented as of this encounter Plan of Treatment Upcoming Encounters Date Type Department Care Team (Late st Contact Info) Description 05/04/2025 3:20 PM EDT Office Visit [facility] [place] [address] [facility]. [address] [place] [address] Narendra Grande MD [address] [place] [address] 08/21/2025 3:10 PM EDT Office Visit [facility] Medicine Specialties [address] [place] [address] Karen Crowell MD [address] [place] [phone] documented as of this encounter Visit Diagnoses [...] documented as of this encounter Care Teams Sales Office Administrator Relationship Specialty Start Date End Date Salo Montes DO [address] [place] [address] PCP - General 04/28/24 documented as of this encounter
--- OUTSIDE RECORDS SUMMARY | 2025-02-02 15:53 | XMS_ITS | Encounter Summary ---
Author Organization Healthcare Address [address] [place] [address] Care Team Providers Care Baler Name Role Phone Salo Montes DO Primary Care Provider [phone] Reason for Visit * Reason Onset Date Comments Med Refill 01/16/2025 Encounter Details Date Type Department Care Team (Late st Contact Info) Description 01/16/2025 Refill [facility] [address] [place] [address] Karen Crowell MD [address] [place] [address] Seropositive rheumatoid arthritis of multiple sites ([facility]/HCC) Social History Tobacco Use Types Packs/Day Years Used Date Smoking Tobacco: Former Cigarettes 1 28 1 981 - 02/17/2008 Passive Smoke Exposure: Past Smokeless [...] all 01/19/2025 11:17 AM EST Trudy Jettpest Patient Health Questionnaire -2 Score 0 01/19/2025 11:17 AM EST Norma Jett * Question Answer Date of Assessment Author [...] all 01/19/2025 11:17 AM EST Jett, Tempest Moving or speaking so slowly that other people could have noticed. Or the opposite - being so fidgety or restless that you have been moving around a lot more than usual Not at all 01/19/2025 11:17 AM EST Maliha Tempest Thoughts that you would be b kelli off or hurting yourself in some way Not at all 01/19/2025 11:17 AM EST Trudy Jettpessarahi Patient Health Questionnaire -9 Score 0 01/19/2025 11:17 AM EST Sandrita Jettt * How difficult have these problems made [...] Description 05/04/2025 3:20 PM EDT Office Visit [facility] [place] [address] [place] [address] Narendra Grande MD [address] [place] [address] 08/21/2025 3:10 PM EDT [facility] Visit [facility] [address] [place] [address] Karen Crowell MD [address] [place] [address] documented as of this encounter Visit Diagnoses Diagnosis Seropositive rheumatoid arthritis of multiple sites (CMS/[facility]) documented in this encounter Additional Health Concerns Assessment Noted Time PHQ-9 Depression Total Score: 0 10/07/19 11:20 AM EDT A fall risk assessment has been complete d for the patient 10/06/2024 11:20 AM EDT A Body Mass Index follow-up plan has been documented for the patient 10/06/2024 12:09 PM EDT documented as of this encounter Care Teams Baler Relationship Specialty Start Date End Date Salo Montes DO [address] [place] [address] PCP - General 04/28/24 documented as of this encounter
--- OUTSIDE RECORDS SUMMARY | 2025-02-02 15:53 | XMS_ITS | Encounter Summary ---
Author Organization Healthcare Address [address] [place] [address] Care Team Providers Care Floating Operator Name Role Phone DanySalo coto Primary Care Provider [phone] Encounter Details Date Type Department Care Team (Late st Contact Info) Description 01/23/2025 Results [facility]Up [facility] [address] [place] [address] Kate Fulton MD [address] [place] [address] Social History Tobacco Use Types [...] PM EST documented as of this encounter Miscellaneous Notes * Result Encounter Note - Kate Fulton MD - 01/23/2025 3:54 PM EST Labs look good! Will reorder your leflunomide documented in this encounter Plan of Treatment Upcoming Encounters Date Type Department Care Team (Late st Contact Info) Description 05/04/2025 3:20 PM EDT Office Visit [facility] [place] [address] [place] [address] Narendra Grande MD [address] [place] [phone] 08/21/2025 3:10 PM EDT [facility] Visit [facility] [address], [address] [place] [address] Karen Crowell MD [address] [place] [address] documented as of this encounter [...] documented as of this encounter Care Teams Floating Operator Relationship Specialty Start Date End Date Salo Montes DO [address] [place] [address] PCP - General 04/28/24 documented as of this encounter
--- OUTSIDE RECORDS SUMMARY | 2025-02-02 15:53 | XMS_ITS | Encounter Summary ---
Author Organization Healthcare Address [address] [place] [address] Care Team Providers Care Oxygen Equipment Technician Name Role Phone SimonSalo Primary Care Provider [phone] Encounter Details Date Type Department Care Team (Late st Contact Info) Description 10/06/2024 Results Follow-Up [facility] [place] [address] [facility]. [address] [place] [address] Padma Yen, VOICE STUDIES DIRECTOR [address] [place] [address] Social History Tobacco Use Types Packs/Day Years Used Date Smoking Tobacco: Former Cigarettes 1 28 1 981 - 02/17/2008 Passive Smoke Exposure: Past Smokeless Tobacco: Never Alcohol Use Standard Drinks/Week Comments Not Currently 1 (1 standard drink = 0.6 oz pur e alcohol) RARELY PHQ-2 Answer Date Recorded Patient Health Questionnaire-2 Score 0 10/06/2024 PHQ-9 Answer Date Recorded Patient Health Questionnaire-9 Score 0 10/06/2024 PHQ-2A Answer Date Recorded Patient Health Questionnaire-2 [...] pleasure in doing things Not at all 10/06/2024 11:20 AM Sully Barker CNA Feeling down, depressed, or hopeless Not at all 10/06/2024 11:20 AM Kiana Barker CNA Patient Health Questionnaire-2 Score 0 10/06/2024 11:20 AM Norman Barker CNA * Question Answer Date of Assessment Author Trouble falling or staying asleep, or sleeping too much Not at all 10/06/2024 11:20 AM Kiana Barker CNA Feeling tired or having little energy Not at all 10/06/2024 11:20 AM Kiana Barker CNA Poor appetite or overeating Not at all 10/06/2024 11 :20 AM Kiana Barker CNA Feeling bad about yourself - or that you are a failure or have let yourself or your family down Not at all 10/06/2024 11:20 AM Kiana Barker CNA Trouble concentrating on things, such as reading the newspaper or watching television Not at all 10/06/2024 11:20 AM Kiana Barker CNA Moving or speaking so slowly that other people could have noticed. Or the opposite - being so fidgety or restless that you have been moving around a lot more than usual Not at all 10/06/2024 11:20 AM Kiana Barker CNA Thoughts that you would be better off or hurting yourself in some way Not at all 10/06/2024 11:20 AM Christian Barker CNA Patient Health Questionnaire-9 Score 0 10/06/2024 11:20 AM Norman Barker CNA * How difficult have these problems made it for you to do your work, take care of things at home, or get along with other people? Answer Date of Assessment Author Not difficult at all 10/06/2024 11:20 AM Kiana Pollock CNA documented as of this encounter Miscellaneous Notes * Result Encounter Note - Padma Yen APRN - 10/06/2024 1:20 PM EDT Your echo results look good. No changes based on this report. documented in this encounter Plan of Treatment Upcoming Encounters Date Type Department Care Team (Late st Contact Info) Description 05/04/2025 3:20 PM EDT Office Visit [facility] [place] [address] [place] [address] Narendra Grande MD [address] [place] [address] 08/21/2025 3:10 PM EDT Office Visit [facility] [address] [place] [address] Karen Crowell MD [address] [place] [address] documented as of this encounter [...] documented as of this encounter Care Teams Oxygen Equipment Technician Relationship Specialty Start Date End Date Salo Montes DO [address] [place] [address] PCP - General 04/28/24 documented as of this encounter
--- OUTSIDE RECORDS SUMMARY | 2025-02-02 15:53 | XMS_ITS | Encounter Summary ---
Author Organization [facility] Address [address] [place] [address] Care Team Providers Care Printing Plate Setter Name Role Phone Salo Montes DO Primary Care Provider [phone] Reason for Referral * Medications - Authorized Specialty Diagnoses / Procedures Referred By Contac t Referred To Contact Diagnoses Seropositive rheumatoid arthritis of multiple sites ([facility]) Kate Fulton MD [address] [facility] [address] [place] [address] Phone: tel: fax: Referral ID Status Reason Start Date Expiration Date V isits Requested Visits Authorized [id number] Authorized 01/30/2025 01/29/2026 1 1 Encounter Details Date Type Department Care Team (Late st Contact Info) Description 01/19/2025 Refill [facility] [address] [place] [address] Maury Lester, [place] [address] Seropositive rheumatoid arthritis of multiple sites ([facility]) (Primary Dx) Social History Tobacco Use Types [...] all 01/19/2025 11:17 AM EST Jett, Tempest Thoughts that you would be b kelli off or hurting yourself in some way Not at all 01/19/2025 11:17 AM EST Jett, Tempest Patient Health Questionnaire -9 Score 0 01/19/2025 11:17 AM EST Jett, Tempest * How difficult have these problems made it for you to do your work, take care of things at home, or get along with other people? Answer Date of Assessment Author Not difficult at all 01/19/2025 11:17 AM EST Norma Delaney documented as of this encounter Miscellaneous Notes * Telephone Encounter - Maury Lester PharmD - 01/19/2025 12:00 PM EST 1 medication(s) has been approved per protocol. documented in this encounter Plan of Treatment Upcoming Encounters Date Type Department Care Team (Late st Contact Info) Description 05/04/2025 3:20 PM EDT Office Visit [facility] [place] [address] [place] [address] Narendra Grande MD [address] [place] [phone] 08/21/2025 3:10 PM EDT Office Visit [facility] Special[facility] [address] [place] [address] Karen Crowell MD [address] [place] [phone] documented as of this encounter Visit Diagnoses Diagnosis Seropositive rheumatoid arthritis of multiple sites (CMS/HCC)- Primary documented in this encounter Additional Health Concerns Assessment Noted Time PHQ-9 Depression Total Score: 0 01/20/20 25 11:17 AM EST A fall risk assessment has been complete d for the patient 01/19/2025 11:18 AM EST A Body Mass Index follow-up plan has been documented for the patient 01/19/2025 11:54 AM EST documented as of this encounter Care Teams Printing Plate Setter Relationship Specialty Start Date End Date Salo Montes DO [address] [place] [address] PCP - General 04/28/24 documented as of this encounter
--- OUTSIDE RECORDS SUMMARY | 2025-02-02 15:53 | XMS_ITS | Encounter Summary ---
Author Organization [facility] Address [address] [place] [address] Care Team Providers Care Aircraft Structural Fitter Name Role Phone Magdy Higgins MD Primary Care Provider [phone] Jessica Veras DMD Unavailable [phone] Ivy Ferreira Unavailable Unavailable Francisco Mcdaniel DMD Unavailable [phone] Donna Fortune Unavailable Unavailable Danyelle Gunderson Primary Care Provider [phone] Kimmy Gould DMD Unavailable [phone] Salo Montes DO Primary Care Provider [phone] Encounter Details Date Type Department Care Team (Late st Contact Info) Description 10/17/2019 Abstract DSB [facility] [address] [place] [address] Dental, Provider, [place] [address] Social History Tobacco Use Types Packs/Day Years Used Date Smoking Tobacco: Never Assessed Comments Unknown Sex and Gender Information Value [...] Description 05/04/2025 3:20 PM EDT Office Visit [facility] [place] [address] [facility]. [address] [place] [address] Narendra Grande MD [address] [place] [address] 08/21/2025 3:10 PM EDT Office Visit [facility] [address] [place] [address] Karen Crowell MD [address] [place] [address] documented as of this encounter Visit Diagnoses Not on filedocumented in this encounter Care Teams Aircraft Structural Fitter Relationship Specialty Start Date End Date Magdy Higgins MD [address] [place] [phone] PCP - General 06/29/20 06/24/23 Danyelle Gunderson PA [address] [place] [address] [phone] PCP - General 06/25/23 04/27/24 Salo Montes DO [address] [place] [address] [phone] PCP - General 04/28/24 Jessica Veras DMD [address] [place] [phone] Dentist Dental Emergency Room Tech 07/30/20 Ivy Ferreira [employer] Dental Student Dental Emergency Room Tech 07/30/20 06/20/22 Francisco Mcdaniel, GEORGIE 22 [facility] [place] [address] Dental Student Dental Emergency Room Tech 05/29/22 Donna Fortune Dental Student Dental Emergency Room Tech 06/10/23 02/28/24 Kimmy Gould, DMD [address] [place] [address] Dentist 01/19/24 02/28/24 documented as of this encounter
--- OUTSIDE RECORDS SUMMARY | 2025-02-02 15:53 | XMS_ITS | Encounter Summary ---
Author Organization [facility] Address [address] [place] [address] Care Team Providers Care Proofsheet Corrector Name Role Phone Magdy Higgins MD Primary Care Provider [phone] Jessica Veras DMD Unavailable [phone] Ivy Ferreira Unavailable Unavailable Francisco Mcdaniel DMD Unavailable [phone] Donna Fortune Unavailable Unavailable Danyelle Gunderson Primary Care Provider [phone] Kimmy Gould DMD Unavailable [phone] Salo Montes DO Primary Care Provider [phone] Reason for Visit * Reason Comments Med Refill Encounter Details Date Type Department Care Team (Late st Contact Info) Description 02/03/2021 Refill [facility] [place] [address] [place] [address] Shellie Perez PA [address] [place] [address] Atherosclerotic heart disease of [place] coronary artery without angina pectoris Social History Tobacco Use Types Packs/Day Years [...] have Coronavirus / COVID-19? No / Unsure 2021 9:06 AM EST documented as of this encounter Plan of Treatment Upcoming Encounters Date Type Department Care Team (Late st Contact Info) Description 05/04/2025 3:20 PM EDT Office Visit [facility] [place] [address] [place] [address] Narendra Grande MD [address] [place] [phone] 08/21/2025 3:10 PM EDT Office Visit [facility] [address] [place] [address] Karen Crowell MD [address] [place] [address] documented as of this encounter Visit Diagnoses Diagnosis Atherosclerotic heart disease of [place] coronary artery without angina pectoris documented in this encounter Additional Health Concerns Assessment Noted Time A fall risk assessment has been complete d for the patient 12/13/2020 9:56 AM EDT documented as of this encounter Care Teams Proofsheet Corrector Relationship Specialty Start Date End Date Magdy Higgins MD [address] [place] [address] PCP - General 06/29/20 06/24/23 Danyelle Gunderson PA [address] [place] [address] PCP - General 06/25/23 04/27/24 Salo Montes DO [address] [place] [address] PCP - General 04/28/24 Jessica Veras, DMD [address] [phone] Dentist Dental House Cleaner 07/30/20 Ivy Ferreira [facility] of Dentistry Dental Student Dental House Cleaner 07/30/20 06/20/22 Francisco Mcdaniel, DMD 22 [facility] MD Adrián [address] Dental Student Dental House Cleaner 05/29/22 Donna Fortune Dental Student Dental House Cleaner 06/10/23 02/28/24 Kimmy Gould, DMD [address] [phone] Dentist 01/19/24 02/28/24 documented as of this encounter
--- OUTSIDE RECORDS SUMMARY | 2025-02-02 15:53 | XMS_ITS | Encounter Summary ---
Author Organization [facility] Address [address] [address] Care Team Providers Care Straight Ruling Machine Operator Name Role Phone Magdy Higgins MD Primary Care Provider [phone] Jessica Veras DMD Unavailable [phone] Ivy Ferreira Unavailable Unavailable Francisco Mcdaniel DMD Unavailable [phone] Donna Fortune Unavailable Unavailable Danyelle Gunderson Primary Care Provider [phone] Kimmy Gould DMD Unavailable [phone] Salo Montes DO Primary Care Provider [phone] Reason for Visit * Reason Comments Med Refill Encounter Details Date Type Department Care Team (Late st Contact Info) Description 09/18/2020 Refill [facility] [place] [address] [facility], [address] [place] [address] Mckenzie Delgado PA [address] [place] [address] Social History Tobacco Use Types Packs/Day Years Used Date Smoking Tobacco: Former Smokeless Tobacco: Never Alcohol Use Standard Drinks/Week Comments Yes 0 (1 standard drink = 0.6 oz pure alcohol) Alcoholic Drinks/day: Minimum alcohol consumption PHQ-2 Answer Date Recorded Patient Health Questionnaire-2 Score 0 08/06/2020 Comments Unknown Sex and Gender Information Value [...] have Coronavirus / COVID-19? No / Unsure 09/11/2020 12:54 PM EDT documented as of this encounter Plan of Treatment Upcoming Encounters Date Type Department Care Team (Late st Contact Info) Description 05/04/2025 3:20 PM EDT Office Visit [facility] [place] [address] [place] [address] Narendra Grande MD [address] [place] [address] 08/21/2025 3:10 PM EDT Office Visit [facility] [address] [place] [address] Karen Corwell MD [address] [place] [address] documented as of this encounter Visit Diagnoses Not on filedocumented in this encounter Additional Health Concerns Assessment Noted Time A fall risk assessment has been complete d for the patient 08/06/2020 11:10 AM EDT documented as of this encounter Care Teams Straight Ruling Machine Operator Relationship Specialty Start Date End Date Magdy Higgins MD [address] [place] [address] PCP - General 06/29/20 06/24/23 Danyelle Gunderson PA [address] [place] [address] PCP - General 06/25/23 04/27/24 Salo Montes DO [address] [place] [address] PCP - General 04/28/24 Jessica Veras, DMD [address] [phone] Dentist Dental Pension Fund Manager 07/30/20 Ivy Ferreira [facility] Dental Student Dental Pension Fund Manager 07/30/20 06/20/22 Francisco Mcdaniel, DMD [address] [facility] [place] [address] Dental Student Dental Pension Fund Manager 05/29/22 Donna Fortune Dental Student Dental Pension Fund Manager 06/10/23 02/28/24 Kimmy Gould, DMD [address] [phone] Dentist 01/19/24 02/28/24 documented as of this encounter
--- OUTSIDE RECORDS SUMMARY | 2025-02-02 15:53 | XMS_ITS | Encounter Summary ---
Author Organization [facility] Address [address] [address] Care Team Providers Care Bottle Blowing Machine Tender Name Role Phone Magdy Higgins MD Primary Care Provider [phone] Jessica Veras DMD Unavailable [phone] Ivy Ferreira Unavailable Unavailable Francisco Mcdaniel DMD Unavailable [phone] Donna Fortune Unavailable Unavailable Danyelle Gunderson Primary Care Provider [phone] Kimmy Gould DMD Unavailable [phone] Salo Montes DO Primary Care Provider [phone] Reason for Visit * Reason Comments Med Refill Encounter Details Date Type Department Care Team (Late st Contact Info) Description 09/18/2020 Refill [facility] [place] [address] [place] [address] Shellie Perez PA [address] [place] [address] Atherosclerotic heart disease of [place] coronary artery without angina pectoris Social History [...] Description 05/04/2025 3:20 PM EDT Office Visit [facility] [place] [address] [place] [address] Narendra Grande MD [address] [place] [phone] 08/21/2025 3:10 PM EDT Office Visit [facility] [address] [place] [phone] Karen Crowell MD [address] [place] [address] documented as of this encounter Visit Diagnoses Diagnosis Atherosclerotic heart disease of [place] coronary artery without angina pectoris documented in this encounter Additional Health Concerns Assessment Noted Time A fall risk assessment has been complete d for the patient 08/06/2020 11:10 AM EDT documented as of this encounter Care Teams Bottle Blowing Machine Tender Relationship Specialty Start Date End Date Magdy Higgins MD [address] [place] [address] PCP - General 06/29/20 06/24/23 Danyelle Gunderson PA [address] [place] [address] PCP - General 06/25/23 04/27/24 Salo Montes DO [address] [place] [address] PCP - General 04/28/24 Jessica Veras, DMD [address] [phone] Dentist Dental Manager Field Services 07/30/20 Ivy Ferreira [facility] Dental Student Dental Manager Field Services 07/30/20 06/20/22 Francisco Mcdaniel, DMD [facility] [place] [address] Dental Student Dental Manager Field Services 05/29/22 Donna Fortune Dental Student Dental Manager Field Services 06/10/23 02/28/24 Kimmy Gould, DMD [address] [phone] Dentist 01/19/24 02/28/24 documented as of this encounter
--- OUTSIDE RECORDS SUMMARY | 2025-02-02 15:53 | XMS_ITS | Encounter Summary ---
Author Organization [facility] Address [address] [place] [address] Care Team Providers Care Marble Setter Name Role Phone Salo Montes Primary Care Provider [phone] Encounter Details Date Type Department Care Team (Latest Contact Info) Description 01/18/2025 Travel Social History Tobacco Use Types Packs/Day [...] Description 05/04/2025 3:20 PM EDT Office Visit [facility] [place] [address] [place] [address] Narendra Grande MD [address] [place] [phone] 08/21/2025 3:10 PM EDT Office Visit [facility] [address] [place] [address] Karen Crowell MD [address] [place] [address] documented as of this encounter [...] documented as of this encounter Care Teams Marble Setter Relationship Specialty Start Date End Date Salo Montes DO [address] [place] [address] PCP - General 04/28/24 documented as of this encounter
--- OUTSIDE RECORDS SUMMARY | 2025-02-02 15:53 | XMS_ITS | Encounter Summary ---
Author Organization [facility] Address [address] [place] [address] Care Team Providers Care Semiconductor Packages Tester Name Role Phone Magdy Higgins MD Primary Care Provider [phone] Jessica Veras DMD Unavailable [phone] Ivy Ferreira Unavailable Unavailable Francisco Mcdaniel DMD Unavailable [phone] Donna Fortune Unavailable Unavailable Danyelle Gunderson Primary Care Provider [phone] Kimmy Gould DMD Unavailable [phone] Salo Montes DO Primary Care Provider [phone] Reason for Visit * Reason Comments Med Refill Encounter Details Date Type Department Care Team (Late st Contact Info) Description 11/23/2020 Refill [facility] [place] [address] [place] [address] Narendra Grande MD [address] [place] [address] Social History Tobacco Use Types Packs/Day Years [...] have Coronavirus / COVID-19? No / Unsure 11/14/2020 1:19 PM EDT documented as of this encounter Plan of Treatment Upcoming Encounters Date Type Department Care Team (Late st Contact Info) Description 05/04/2025 3:20 PM EDT Office Visit [facility] [place] [address] [place] [address] Narendra Grande MD [address] [place] [address] 08/21/2025 3:10 PM EDT Office Visit [place] [facility] [address] [place] [address] Karen Crowell MD [address] [place] [address] documented as of this encounter Visit Diagnoses Not on filedocumented in this encounter Additional Health Concerns Assessment Noted Time A fall risk assessment has been complete d for the patient 11/14/2020 1:26 PM EDT documented as of this encounter Care Teams Semiconductor Packages Tester Relationship Specialty Start Date End Date Magdy Higgins MD [address] [place] [address] PCP - General 06/29/20 06/24/23 Danyelle Gunderson PA [address] [place] [address] PCP - General 06/25/23 04/27/24 Salo Montes DO [address] [place] [address] PCP - General 04/28/24 Jessica Veras, DMD [address] [address] Dentist Dental Rug Scratcher 07/30/20 Ivy Ferreira [facility] Dental Student Dental Rug Scratcher 07/30/20 06/20/22 Francisco Mcdaniel, DMD 22 [facility] [place] [address] Dental Student Dental Rug Scratcher 05/29/22 Donna Fortune Dental Student Dental Rug Scratcher 06/10/23 02/28/24 Kimmy Gould, DMD [address] [phone] Dentist 01/19/24 02/28/24 documented as of this encounter
--- NOTE | 2025-02-02 16:00 | MM_ITS ---
PROCEDURE INFORMATION: Exam: MG Bilateral Screening 3D Mammography Exam date and time: 02/02/2025 4:19 PM Age: 60 years old Clinical indication: Screening. No family history of breast cancer. TECHNIQUE: Imaging protocol: Bilateral Screening tomosynthesis and 2D mammography including computer-aided detection (CAD) when performed. COMPARISON: 1. MG MM DIG SCREENING MAMM BI W/CAD 12/24/2023 1:19 PM 2. MG MM DIG SCREENING MAMM BI W/CAD 08/07/2022 3:23 PM FINDINGS: MAMMOGRAPHY: Breast composition: There are scattered areas of fibroglandular density. Mass: No suspicious mass. Architectural distortion: None. Calcifications: No suspicious calcifications. Asymmetric density: None. Skin thickening: None. Axillary adenopathy: None. IMPRESSION: No mammographic evidence of malignancy. Annual screening is recommended unless otherwise clinically indicated. ASSESSMENT: BI-RADS Category 1: Negative.
== END 2025-02-02 23:59 | disposition home or self-care (01) ==
LOC: RAD 15:51
PROVIDERS: PCP Family Medicine; Visit Provider Nurse Practitioner Obstetrics & Gynecology
DX: Z12.31 Encounter for screening mammogram for malignant neoplasm of breast (principal); R92.323 Mammographic fibroglandular density, bilateral breasts
CPT/HCPCS: 77063; 77067